=== PATIENT | male | born 1970 | race Caucasian/White ===

== ENCOUNTER 2017-03-25 20:09 | Emergency (ER) | payer OTHER ==
[2017-03-25] MEDS ORDERED: MORPHINE SULFATE 10 MG/ML INJ IV ONE ×2 (20:43→22:53)
[2017-03-25] MEDS ORDERED: ONDANSETRON HCL INJ/PF 4 MG/2 ML SDV IV ONE (20:43)
[2017-03-25] MEDS ORDERED: NORMAL SALINE 1000 ML 1,000 ML IV ONE (20:43)
--- NOTE | 2017-03-25 20:45 | ER Document Report ---
ED General - General Chief Complaint: Dizziness Stated Complaint: ABDOMINAL PAIN Time Seen by Provider: 03/25/17 20:23 Mode of Arrival: Ambulatory Information source: Patient Notes: Patient presents complaining of abdominal pain, dizziness and feeling faint. Patient states that he was recently diagnosed with stage IV stomach cancer 11 days ago. Patient states that he is waiting for the oncologist to get back in town so that he can follow-up. Patient states that his office is supposed to call him tomorrow with an appointment time. Patient states that he has had abdominal pain chronically for several months and that it is modestly worse tonight. Patient reports that he did have nausea with vomiting 1 episode that was light pink colored. Patient states that typically he will vomit about 1 time a week over the past several months. Patient states that he has had blood in his emesis about 1 time a week over the past few months. Patient denies any fever but does report having night sweats. Patient states that he has occasional shortness of breath but is not certain if this may be attributed to getting very emotional and anxious about his diagnosis. Pt denies any blood in the stool or dark colored stools. Patient states that his dizziness was causing his gait to be off balance at home which prompted his parents to get concerned and insisted he come to the hospital for further evaluation. TRAVEL OUTSIDE OF THE [place] IN LAST 30 DAYS: No - HPI Onset: Other - Several months, worse tonight Onset/Duration: Worse Quality of pain: Sharp Pain Level: 5 Associated symptoms: Nausea, Vomiting. denies: Chest pain, Nonproductive cough , Productive cough, Diarrhea, Fever Exacerbated by: Denies Relieved by: Denies Similar symptoms previously: Yes Recently seen / treated by doctor: Yes - 11 days ago diagnosed with stomach cancer - Related Data Allergies/Adverse Reactions: No Known Allergies Allergy (Unverified 03/25/17 21:30) Past Medical History - General Information source: Patient - Social History Smoking Status: Current Every Day Smoker Frequency of alcohol use: former Drug Abuse: None Occupation: none Lives with: Parents Family History: Reviewed & Not Pertinent Malignancy Medical History: Reports Other - stomach cancer Psychiatric Medical History: Reports: Hx Anxiety, Hx Depression Surgical Hx: Negative Review of Systems - Review of Systems Constitutional: Chills, Weight loss - 40 lb wt loss over 3 months EENT: No symptoms reported Cardiovascular: Dizziness, Lightheaded. denies: Chest pain, Palpitations Respiratory: Short of breath. denies: Cough Gastrointestinal: Abdominal pain, Nausea, Vomiting, Blood in vomit. denies: Diarrhea, Constipation, Blood streaked bowels Genitourinary: No symptoms reported. denies: Dysuria, Flank pain Male Genitourinary: No symptoms reported Musculoskeletal: No symptoms reported Skin: No symptoms reported Hematologic/Lymphatic: No symptoms reported Neurological/Psychological: No symptoms reported. denies: Lost consciousness Physical Exam - Vital signs Vitals: Temp Pulse Resp BP Pulse Ox 98.9 F 101 H 22 H 116/77 100 03/25/17 20:13 03/25/17 20:13 03/25/17 20:13 03/25/17 20:13 03/25/17 20:13 - General General appearance: Alert, Anxious In distress: None - HEENT Head: Normocephalic, Atraumatic Eyes: Normal Conjunctiva: Normal Nasal: Normal Mouth/Lips: Normal Mucous membranes: Normal Neck: Normal, Supple. No: Lymphadenopathy - Respiratory Respiratory status: No respiratory distress Chest status: Nontender Breath sounds: Normal. No: Rales, Rhonchi, Stridor, Wheezing Chest palpation: Normal - Cardiovascular Rhythm: Regular Heart sounds: S1 appreciated, S2 appreciated Murmur: No - Abdominal Inspection: Normal Distension: No distension Bowel sounds: Normal Tenderness: Tender - Left upper quadrant, right upper quadrant, left lower quadrant Organomegaly: No organomegaly - Back Back: Normal, Nontender. No: CVA tenderness - Extremities General upper extremity: Normal inspection, Normal ROM General lower extremity: Normal inspection, Normal ROM - Neurological Neuro grossly intact: Yes Cognition: Normal Anay Coma Scale Eye Opening: Spontaneous Anay Coma Scale Verbal: Oriented [place] Coma Scale Motor: Obeys Commands [place] Coma Scale Total: 15 - Psychological Associated symptoms: Anxious - Skin Skin Temperature: Warm Skin Moisture: Dry Skin Color: Normal Course - Re-evaluation Re-evalutation: 03/25/17 23:15 Patient reports that abdominal pain is improved although is not completely resolved. Patient feels that his symptoms are manageable. 03/25/17 23:[address] Sexton and discuss patient's diagnostic evaluation. Does not recommend any abdominal imaging as patient has had recent CT imaging of the abdomen. Agrees with plan to treat patient's nausea and abdominal pain as well as having patient follow up with oncology tomorrow as planned. - Vital Signs Vital signs: Temp Pulse Resp BP Pulse Ox 99.2 F 101 H 17 116/74 98 03/26/17 00:24 03/25/17 20:13 03/26/17 00:01 03/26/17 00:00 03/26/17 00:01 - Laboratory Result Diagrams: 03/25/17 21:20 03/25/17 21:20 Laboratory results interpreted by me: 03/25/17 03/25/17 03/25/17 21:20 21:20 21:20 WBC 14.3 H RBC 3.58 L Hgb 10.5 L Hct 31.2 L RDW 14.6 H Plt Count 462 H Seg Neutrophils % 82.8 H Lymphocytes % 9.7 L Absolute Neutrophils 11.9 H APTT 37.6 H Glucose 111 H Total Bilirubin 0.1 L AST 13 L ALT 20 L Total Protein 6.1 L Albumin 3.1 L Urine Urobilinogen 03/25/17 21:20 WBC RBC Hgb Hct RDW Plt Count Seg Neutrophils % Lymphocytes % Absolute Neutrophils APTT Glucose Total Bilirubin AST ALT Total Protein Albumin Urine Urobilinogen 2.0 H Labs- Entire Visit 03/25/17 03/25/17 03/25/17 21:20 21:20 21:20 WBC 14.3 H RBC 3.58 L Hgb 10.5 L Hct 31.2 L MCV 87 MCH 29.2 MCHC 33.5 RDW 14.6 H Plt Count 462 H Seg Neutrophils % 82.8 H Lymphocytes % 9.7 L Monocytes % 5.9 Eosinophils % 1.2 Basophils % 0.4 Absolute Neutrophils 11.9 H Absolute Lymphocytes 1.4 Absolute Monocytes 0.8 Absolute Eosinophils 0.2 Absolute Basophils 0.1 PT INR APTT Sodium 138.0 Potassium 3.8 Chloride 101 Carbon Dioxide 30 Anion Gap 7 BUN 12 Creatinine 0.83 Est GFR ( Amer) > 60 Est GFR (Non-Af Amer) > 60 Glucose 111 H Calcium 9.4 Total Bilirubin 0.1 L Direct Bilirubin 0.1 Neonat Total Bilirubin Not Reportable Neonat Direct Bilirubin Not Reportable Neonat Indirect Bili Not Reportable AST 13 L ALT 20 L Alkaline Phosphatase 70 Troponin I < 0.012 Total Protein 6.1 L Albumin 3.1 L Lipase 24.2 Urine Color Urine Appearance Urine pH Ur Specific [place] Urine Protein Urine Glucose (UA) Urine Ketones Urine Blood Urine Nitrite Urine Bilirubin Urine Urobilinogen Ur Leukocyte Esterase Urine WBC (Auto) Urine RBC (Auto) Squamous Epi Cells Auto Urine Mucus (Auto) Urine Ascorbic Acid 03/25/17 03/25/17 21:20 21:20 WBC RBC Hgb Hct MCV MCH MCHC RDW Plt Count Seg Neutrophils % Lymphocytes % Monocytes % Eosinophils % Basophils % Absolute Neutrophils Absolute Lymphocytes Absolute Monocytes Absolute Eosinophils Absolute Basophils PT 13.1 INR 0.92 APTT 37.6 H Sodium Potassium Chloride Carbon Dioxide Anion Gap BUN Creatinine Est GFR ( Amer) Est GFR (Non-Af Amer) Glucose Calcium Total Bilirubin Direct Bilirubin Neonat Total Bilirubin Neonat Direct Bilirubin Neonat Indirect Bili AST ALT Alkaline Phosphatase Troponin I Total Protein Albumin Lipase Urine Color YELLOW Urine Appearance SLIGHTLY-CLOUDY Urine pH 7.0 Ur Specific [place] 1.023 Urine Protein NEGATIVE Urine Glucose (UA) NEGATIVE Urine Ketones NEGATIVE Urine Blood NEGATIVE Urine Nitrite NEGATIVE Urine Bilirubin NEGATIVE Urine Urobilinogen 2.0 H Ur Leukocyte Esterase NEGATIVE Urine WBC (Auto) 0 Urine RBC (Auto) 1 Squamous Epi Cells Auto <1 Urine Mucus (Auto) OCC Urine Ascorbic Acid NEGATIVE - Diagnostic Test Radiology reviewed: Reports reviewed Discharge - Discharge Clinical Impression: History of stomach cancer, Nausea, Anxiety Abdominal pain Qualifiers: Abdominal location: unspecified location Qualified Code(s): R10.9 - Unspecified abdominal pain Condition: Stable Disposition: HOME, SELF-CARE Instructions: Abdominal Pain ([facility]), Anxiety ([facility]), Oral Narcotic Medication ( [facility]) Additional Instructions: Return immediately for any new or worsening symptoms Followup with your primary care provider, call tomorrow to make a followup appointment Follow-up with oncologist tomorrow for further evaluation. Prescriptions: Hydroxyzine Pamoate [Vistaril 50 mg Capsule] 50 mg PO TID PRN #20 capsule PRN Reason: Oxycodone HCl/Acetaminophen [Percocet 5-325 mg Tablet] 1 tab PO ASDIR PRN #20 tablet PRN Reason: Referrals: [facility] [Provider Group] - Follow up as needed WINSTON ORNELAS MD [ACTIVE STAFF] - Follow up tomorrow
[2017-03-25 21:38] LABS: APPEARANCE,URINE SLIGHTLY-CLOUDY; BILIRUBIN,URINE NEGATIVE (NEGATIVE); COLOR,URINE YELLOW; GLUCOSE, URINE NEGATIVE (NEGATIVE); KETONES,URINE NEGATIVE (NEGATIVE); LEUKOCYTE ESTERASE,URINE NEGATIVE (NEGATIVE); NITRITE,URINE NEGATIVE (NEGATIVE); PROTEIN,URINE NEGATIVE (NEGATIVE); URINE SPECIFIC GRAVITY 1.023
[2017-03-25 21:44] LABS: ABSOLUTE BASOPHILS # (AUTO) 0.1 10^3/uL (0.0-0.2); ABSOLUTE EOSINOPHILS # (AUTO) 0.2 10^3/uL (0.0-0.6); ABSOLUTE LYMPHOCYTES (AUTO) 1.4 10^3/uL (0.5-4.7); ABSOLUTE MONOCYTES (AUTO) 0.8 10^3/uL (0.1-1.4); ABSOLUTE NEUT (AUTO) 11.9 10^3/uL (1.7-8.2); BASOPHILS % (AUTO) 0.4 % (0-2); EOSINOPHILS % (AUTO) 1.2 % (0-6); HEMATOCRIT 31.2 % (37.9-51.0); HEMOGLOBIN 10.5 g/dL (13.5-17.0); LYMPHOCYTES % (AUTO) 9.7 % (13-45); MEAN CORPUSCULAR HEMOGLOBIN 29.2 pg (27.0-33.4); MEAN CORPUSCULAR HGB CONC 33.5 g/dL (32.0-36.0); MEAN CORPUSCULAR VOLUME 87 fl (80-97); MONOCYTES % (AUTO) 5.9 % (3-13); PLATELET COUNT 462 10^3/uL (150-450); RED BLOOD COUNT 3.58 10^6/uL (4.35-5.55); RED CELL DISTRIBUTION WIDTH 14.6 % (11.5-14.0); SEGMENTED NEUTROPHILS % (AUTO) 82.8 % (42-78); TOTAL CELLS COUNTED % (AUTO) 100 %; WHITE BLOOD COUNT 14.3 10^3/uL (4.0-10.5)
[2017-03-25 21:47] LABS: INTERNATIONAL RATION (INR) 0.92; PROTHROMBIN TIME 13.1 SEC (11.4-15.4)
[2017-03-25 21:48] LABS: PARTIAL THROMBOPLASTIN TIME 37.6 SEC (23.5-35.8)
[2017-03-25 21:57] LABS: ALANINE AMINOTRANSFERASE 20 U/L (21-72); ALBUMIN 3.1 g/dL (3.5-5.0); ALKALINE PHOSPHATASE 70 U/L (38-126); ANION GAP 7 (5-19); ASPARTATE AMINO TRANSFERASE 13 U/L (17-59); BILIRUBIN,DIRECT 0.1 mg/dL (0.0-0.4); BILIRUBIN,TOTAL 0.1 mg/dL (0.2-1.3); BLOOD UREA NITROGEN 12 mg/dL (7-20); CALCIUM 9.4 mg/dL (8.4-10.2); CARBON DIOXIDE 30 mmol/L (22-30); CHLORIDE 101 mmol/L (98-107); GLUCOSE 111 mg/dL (75-110); LIPASE 24.2 U/L (23-300); POTASSIUM 3.8 mmol/L (3.6-5.0); TOTAL PROTEIN 6.1 g/dL (6.3-8.2)
--- NOTE | 2017-03-25 22:33 | RADIOLOGY REPORT (SQ) ---
EXAM DESCRIPTION: ACUTE ABDOMEN SERIES COMPLETED DATE/TIME: 03/25/2017 10:08 pm REASON FOR STUDY: abd pain, dyspnea, stage IV stomach Ca COMPARISON: None. NUMBER OF VIEWS: Three views. TECHNIQUE: Frontal chest, supine abdomen and upright/decubitus abdomen radiographic images acquired. LIMITATIONS: None. FINDINGS: CHEST: Lungs clear of infiltrates. FREE AIR: None. No abnormal gas collections. BOWEL GAS PATTERN: Nonobstructive pattern. No dilated loops or air fluid levels. CONSTIPATION: Moderate CALCIFICATIONS: No suspicious calcifications. HARDWARE: None in the abdomen. SOFT TISSUES: No gross mass or suggestion of organomegaly. BONES: No acute fracture. No worrisome bone lesions. OTHER: No other significant finding. IMPRESSION: NO RADIOGRAPHIC EVIDENCE FOR ACUTE ABDOMINAL DISEASE. CONSTIPATION. TECHNICAL DOCUMENTATION: JOB ID: [id number] 2010 [employer]- All Rights Reserved
--- NOTE | 2017-03-25 23:28 | RADIOLOGY REPORT (SQ) ---
EXAM DESCRIPTION: CT HEAD WITHOUT COMPLETED DATE/TIME: 03/25/2017 11:12 pm REASON FOR STUDY: dizziness, hx stomach CA COMPARISON: None. TECHNIQUE: Axial images acquired through the brain without intravenous contrast. Images reviewed wi th bone, brain and subdural windows. Images stored on PACS. All CT scanners at this facility use dose modulation, iterative reconstruction, and/or weight based d osing when appropriate to reduce radiation dose to as low as reasonably achievable (ALARA). [facility]: Dose Right [facility]: CareDose [facility]: Dose Right [facility]: Teradose 4D [facility]: [employer] RADIATION DOSE: CT Rad equipment meets quality standard of care and radiation dose reduction techniq ues were employed. CTDIvol: 64.6 mGy. DLP: 1163 mGy-cm. mGy. LIMITATIONS: None. FINDINGS: VENTRICLES: Normal. CEREBRUM: No masses. No hemorrhage. No midline shift. Few scattered Areas of low density in the wh ite matter most likely due to chronic micro-vascular ischemic change. No evidence for acute infarcti on. CEREBELLUM: No masses. No hemorrhage. No alteration of density. No evidence for acute infarction. EXTRAAXIAL SPACES: Mild age-related involutional change. No fluid collections. No masses. ORBITS AND GLOBE: No intra- or extraconal masses. Normal contour of globe without masses. CALVARIUM: No fracture. PARANASAL SINUSES: No fluid or mucosal thickening. SOFT TISSUES: No mass or hematoma. OTHER: No other significant finding. IMPRESSION: Few scattered Areas of low density in the white matter most likely due to chronic micro- vascular ischemic change. EVIDENCE OF ACUTE STROKE: NO. TECHNICAL DOCUMENTATION: JOB ID: [id number] Quality ID # [id number]: Final reports with documentation of one or more dose reduction techniques (e.g., Au tomated exposure control, adjustment of the mA and/or kV according to patient size, use of iterative reconstruction technique) 2010 [employer]- All Rights Reserved
[2017-03-26 00:17] VITALS: BP 116/74
--- NOTE | 2017-03-27 07:57 | EKG REPORT ---
SEVERITY:- NORMAL ECG - SINUS RHYTHM : Confirmed by: Sameera Jaramillo MD 27-Mar-2017 07:55:53
== END 2017-03-26 00:24 | disposition home or self-care (01) ==
LOC: EDBD 20:09 → ER 20:09
DX: R42 Dizziness and giddiness (principal); R10.9 Unspecified abdominal pain; R11.2 Nausea with vomiting, unspecified; F41.9 Anxiety disorder, unspecified; F17.200 Nicotine dependence, unspecified, uncomplicated; Z85.028 Personal history of other malignant neoplasm of stomach
CPT/HCPCS: 93005; 96376; 99285; 96374; 96375; 36415; 83690; 85025; 85610; 85730; 80053; 81001; 84484; 74022; 70450; 93010; J2270; J2405; J7030

== ENCOUNTER → 2017-03-30 | Outpatient (CLI) | payer OTHER ==
--- NOTE | 2017-04-01 11:01 | RADIOLOGY REPORT (SQ) ---
EXAM DESCRIPTION: PET CT SKULL/THIGH COMPLETED DATE/TIME: 03/30/2017 8:35 pm REASON FOR STUDY: GASTRIC CANCER C16.0 MALIGNANT NEOPLASM OF CARDIA COMPARISON: None. RADIONUCLIDE AND DOSE: 10.0 mCi F18 FDG The route of agent administration: Intravenous FASTING BLOOD SUGAR: 108 mg/dl CONTRAST TYPE AND DOSE: No CT contrast given. TECHNIQUE: Blood glucose level was verified. Above dose of FDG was injected intravenously. 2-D seg mented attenuation correction images were obtained from the base of the skull to the midthighs. Nonc ontrast CT images were obtained for attenuation correction and fusion with emission images. CT image s were performed without oral or intravenous contrast and are not sensitive for parenchymal lesions. A series of overlapping emission PET images were obtained. [facility] by the radiologist. Images stored on PACS. LIMITATIONS: None. FINDINGS: HEAD AND NECK: No areas of abnormal metabolic activity in the soft tissues of the head and neck. CHEST: No areas of abnormal metabolic activity in the chest. Findings involving the distal esophagus are discussed in the abdominal section. ABDOMEN AND PELVIS: Extensive heterogenous soft tissue mass extending from the distal esophagus throu gh the gastroesophageal junction and into the proximal stomach. Markedly increased metabolic activit y. SUV values range from 9.39 to 14.7. Tiny lymph node on the right side of the esophagus just abov e the area of involvement (series 3, image 111), measuring 6 mm, with mean SUV value 2.28. Retroperi toneal lymph node on the right side of the celiac artery, measuring 9 mm (series 3, image 143). Mean SUV value 3.83. Lymph node on the left side of the superior mesenteric artery measuring 1.5 cm (ser ies 3, image 147). Mean SUV value 2.65. Expected physiologic activity is present in the genitourinar y system and bowel. PROXIMAL LOWER EXTREMITIES: No areas of abnormal metabolic activity in the soft tissues of the lower extremities. BONES: No abnormal metabolic activity in the visualized skeleton. ADDITIONAL CT FINDINGS: Incidental cyst in the left lobe of the liver, measuring 1.5 cm. No addition al significant findings on the noncontrast CT images. OTHER: No other significant findings. IMPRESSION: 1. EXTENSIVE LARGE MASS AT THE GASTROESOPHAGEAL JUNCTION EXTENDING INTO THE PROXIMAL STOMACH SECONDAR Y TO KNOWN MALIGNANCY. THERE IS EVIDENCE OF METASTATIC ADENOPATHY WITH A SMALL LYMPH NODE ON THE RIG HT SIDE OF THE DISTAL ESOPHAGUS WELL TWO LYMPH NODES IDENTIFIED IN THE UPPER RETROPERITONEUM. 2. NO OTHER AREAS OF ABNORMAL METABOLIC ACTIVITY. TECHNICAL DOCUMENTATION: JOB ID: [id number] [employer]- All Rights Reserved
== END ==
LOC: RAD 17:46
PROVIDERS: ATTEND Internal Medicine
DX: C16.0 Malignant neoplasm of cardia (principal)
CPT/HCPCS: 78815; A9552

== ENCOUNTER 2017-04-30 09:48 | Outpatient (CLI) | payer OTHER ==
[~2017-04-30 09:48] MED LIST: ACETAMINOPHEN 325 MG TABLET PO PRN; DIPHENHYDRAMINE HCL 25 MG CAPSULE PO PRN; FUROSEMIDE INJ/PF 20 MG/2 ML SDV IV PRN
[2017-04-30 10:26] LABS: MEAN CORPUSCULAR HEMOGLOBIN 26.8 pg (27.0-33.4); MEAN CORPUSCULAR HGB CONC 31.7 g/dL (32.0-36.0); MEAN CORPUSCULAR VOLUME 85 fl (80-97); PLATELET COUNT 832 10^3/uL (150-450); RED BLOOD COUNT 1.67 10^6/uL (4.35-5.55)
[2017-04-30 10:53] LABS: HEMOGLOBIN 4.5 g/dL (13.5-17.0)
[2017-04-30 11:01] LABS: HEMATOCRIT 14.1 % (37.9-51.0)
[2017-04-30] MEDS ORDERED: MORPHINE SULFATE 10 MG/ML INJ IV ONE (15:00)
[2017-04-30 17:43] VITALS: BP 100/61
[2017-05-01 12:53] LABS: PATH REVIEW PATHOLOGIST REVIEWED
== END 2017-04-30 17:45 | disposition home or self-care (01) ==
LOC: II 09:48 → 2S 10:00 → II 17:45
PROVIDERS: ATTEND Internal Medicine
PROC: 30233N1 Transfusion of Nonautologous Red Blood Cells into Peripheral Vein, Percutaneous Approach (ICD-10-PCS; principal; 2017-04-30)
PROC: 3E033GC Introduction of Other Therapeutic Substance into Peripheral Vein, Percutaneous Approach (ICD-10-PCS; 2017-04-30)
DX: D64.9 Anemia, unspecified (principal)
CPT/HCPCS: 86900; 86901; 36415; 36430; 86850; 86920; P9016; J1940; J2270; 96374; 96375

== ENCOUNTER 2017-05-01 15:36 | Outpatient (CLI) | payer OTHER ==
[2017-05-01] MEDS ORDERED: LORAZEPAM 0.5 MG TABLET PO PRN (16:36)
[2017-05-01] MEDS: MORPHINE SULFATE 10 MG/5 ML ORAL SOLUTION UDCUP PO PRN (16:54)
[2017-05-01 17:20] LABS: HEMATOCRIT 18.6 % (37.9-51.0); MEAN CORPUSCULAR HEMOGLOBIN 27.6 pg (27.0-33.4); MEAN CORPUSCULAR HGB CONC 33.3 g/dL (32.0-36.0); MEAN CORPUSCULAR VOLUME 83 fl (80-97); PLATELET COUNT 608 10^3/uL (150-450); RED BLOOD COUNT 2.24 10^6/uL (4.35-5.55); RED CELL DISTRIBUTION WIDTH 15.6 % (11.5-14.0); WHITE BLOOD COUNT 26.9 10^3/uL (4.0-10.5)
[2017-05-01 18:03] LABS: HEMOGLOBIN 6.2 g/dL (13.5-17.0)
[2017-05-01] MEDS: ACETAMINOPHEN 325 MG TABLET PO SCH (18:18)
[2017-05-01] MEDS: DIPHENHYDRAMINE HCL 25 MG CAPSULE PO SCH (18:18)
[2017-05-01] MEDS: ONDANSETRON 4 MG TAB.RAPDIS PO PRN (19:20)
[2017-05-01] MEDS: FUROSEMIDE INJ/PF 20 MG/2 ML SDV IV SCH (22:12)
[2017-05-02 00:13] VITALS: BP 119/77
== END 2017-05-02 01:32 | disposition home or self-care (01) ==
LOC: II 15:36 → 3W 15:48 → II 05-02 01:32
PROVIDERS: ATTEND Internal Medicine
PROC: 30243N1 Transfusion of Nonautologous Red Blood Cells into Central Vein, Percutaneous Approach (ICD-10-PCS; principal; 2017-05-01)
DX: C16.0 Malignant neoplasm of cardia (principal); D63.0 Anemia in neoplastic disease; G89.3 Neoplasm related pain (acute) (chronic); Z93.1 Gastrostomy status
CPT/HCPCS: 86900; 86901; 36415; 36430; 86850; 86920; P9016; S0119; J1940

== ENCOUNTER 2017-05-05 22:06 | Emergency (ER) | payer OTHER ==
[2017-05-05] MEDS ORDERED: NORMAL SALINE 1000 ML 1,000 ML IV ONE (22:49)
--- NOTE | 2017-05-05 22:50 | ER Document Report ---
ED General - General Chief Complaint: Fever Stated Complaint: VOMITING FEVER Time Seen by Provider: 05/05/17 22:48 Information source: Patient, Parent TRAVEL OUTSIDE OF THE [place] IN LAST 30 DAYS: No - HPI Patient complains to provider of: fever Onset: This afternoon Onset/Duration: Sudden Quality of pain: Achy Associated symptoms: Nausea, Vomiting Exacerbated by: Denies Relieved by: Denies Similar symptoms previously: Yes Recently seen / treated by doctor: Yes - chemo 4 days ago Notes: 46-year-old male who was diagnosed with gastric cancer mid February. Patient had his first round of chemotherapy 4 days ago. He presents today with fever of 102 orally as per his mom's report. She has also been having nausea and vomiting throughout the day. He does have a PEG tube and his parents did turn off the feedings. - Related Data Allergies/Adverse Reactions: No Known Allergies Allergy (Unverified 03/25/17 21:30) Past Medical History - General Information source: Patient, Relative - Social History Smoking Status: Former Smoker Smoking Education Provided: No Frequency of alcohol use: None Drug Abuse: None Lives with: Parents Family History: Reviewed & Not Pertinent Patient has suicidal ideation: No Patient has homicidal ideation: No - Past Medical History Cardiac Medical History: Denies: Hx Atrial Fibrillation, Hx Congestive Heart Failure, Hx Heart Attack , Hx Hypercholesterolemia, Hx Hypertension Pulmonary Medical History: Denies: Hx Asthma, Hx Bronchitis, Hx COPD, Hx Pneumonia, Hx Tuberculosis Neurological Medical History: Denies: Hx Migraine, Hx Seizures Endocrine Medical History: Denies: Hx Diabetes Mellitus Type 1, Hx Diabetes Mellitus Type 2 Renal/ Medical History: Denies: Hx End Stage Renal Disease, Hx Kidney Stones, Hx Peritoneal Dialysis Malignancy Medical History: Reports Other - Gastric cancer GI Medical History: Denies: Hx Gastroesophageal Reflux Disease, Hx Hiatal Hernia , Hx Ulcer Musculoskeltal Medical History: Denies Hx Arthritis Psychiatric Medical History: Reports: Hx Anxiety, Hx Depression Denies: Hx Attention Deficit Hyperactivity Disorder, Hx Bipolar Disorder, Hx Schizophrenia Traumatic Medical History: Reports: None Past Surgical History: Reports: Other - Port-A-Cath, G-tube, abdominal biopsy. Denies: Hx Abdominal Surgery, Hx Appendectomy, Hx Bowel Surgery, Hx Cardiac Catheterization, Hx Cardiac Surgery, Hx Cholecystectomy, Hx Genitourinary Surgery, Hx Kidney (Renal Surgery), Hx Neurologic Surgery, Hx Nose Surgery, Hx Open Heart Surgery, Hx Oral Surgery, Hx Orthopedic Surgery, Hx Pancreatic Surgery, Hx Pituitary Surgery, Hx Rectal Surgery, Hx Testicular Surgery, Hx Thyroid Surgery, Hx Tonsillectomy, Hx Urinary Tract Surgery, Hx Vascular Surgery - Immunizations Hx Diphtheria, Pertussis, Tetanus Vaccination: Yes Review of Systems - Review of Systems Constitutional: Chills, Fever, Weakness, Weight loss EENT: No symptoms reported Cardiovascular: No symptoms reported Respiratory: No symptoms reported Gastrointestinal: Nausea, Vomiting, Poor appetite, Poor fluid intake. denies: Abdomen distended, Diarrhea Genitourinary: No symptoms reported Male Genitourinary: No symptoms reported Musculoskeletal: No symptoms reported Skin: No symptoms reported Hematologic/Lymphatic: Anemia Neurological/Psychological: Depression Physical Exam - Vital signs Vitals: Temp Pulse Resp BP Pulse Ox 99.9 F 115 H 17 93/59 L 97 05/05/17 22:49 05/05/17 22:49 05/05/17 22:49 05/05/17 22:49 05/05/17 22:49 - Notes Notes: PHYSICAL EXAMINATION: GENERAL: Cachectic, ill-appearing male, mild distress HEAD: Atraumatic, normocephalic. EYES: Pupils equal round and reactive to light, extraocular movements intact, sclera anicteric, conjunctiva are normal. ENT: Nares patent, oropharynx clear without exudates. Dry mucous membranes. NECK: Normal range of motion, supple without lymphadenopathy LUNGS: Breath sounds clear to auscultation bilaterally and equal. No wheezes rales or rhonchi. HEART: Regular rate and rhythm without murmurs ABDOMEN: Soft, nontender, nondistended abdomen. PEG tube without signs or symptoms of infection. no guarding, no rebound. Musculoskeletal: Normal range of motion, no pitting or edema. No cyanosis. NEUROLOGICAL: Cranial nerves grossly intact. Normal speech. Normal sensory, motor exams PSYCH: Normal mood, normal affect. SKIN: Warm, Dry, normal turgor, no rashes or lesions noted. Course - Re-evaluation Re-evalutation: 05/06/17 01:06 Chest X-Ray 05/05/17 22:48 IMPRESSION: No acute findings. - Vital Signs Vital signs: Temp Pulse Resp BP Pulse Ox 99.9 F 115 H 21 H 96/64 L 100 05/05/17 22:49 05/05/17 22:49 05/05/17 23:29 05/05/17 23:28 05/05/17 23:29 - Laboratory Result Diagrams: 05/05/17 23:20 05/05/17 23:20 Laboratory results interpreted by me: 05/05/17 05/05/17 05/06/17 23:20 23:20 00:30 WBC 18.1 H RBC 2.37 L Hgb 6.8 L Hct 20.2 L RDW 15.3 H Plt Count 572 H Seg Neuts % (Manual) 85 H Band Neutrophils % 2 L Lymphocytes % (Manual) 8 L Abs Neuts (Manual) 15.7 H Sodium 129.7 L Chloride 94 L Glucose 121 H AST 13 L ALT 18 L Total Protein 5.0 L Albumin 2.5 L Urine Urobilinogen 4.0 H Urine Ascorbic Acid 40 H Discharge - Discharge Clinical Impression: Fever, Anemia, Blood transfusion during current hospitalisation, Gastric cancer Condition: Poor Disposition: HOME, SELF-CARE Additional Instructions: Follow up with your physician tomorrow for further care or return to the ED IMMEDIATELY if symptoms worsen or new concerns occur. If you cannot afford to follow up with your primary care physician a list of low cost clinics have been provided at the end of your discharge papers as well. Referrals: WINSTON ORNELAS MD [Primary Care Provider] - Follow up in 3-5 days
--- NOTE | 2017-05-05 23:13 | RADIOLOGY REPORT (SQ) ---
EXAM DESCRIPTION: CHEST PA/LAT COMPLETED DATE/TIME: 05/05/2017 11:02 pm REASON FOR STUDY: fever COMPARISON: 03/25/2017 EXAM PARAMETERS: NUMBER OF VIEWS: two views TECHNIQUE: Digital Frontal and Lateral radiographic views of the chest acquired. RADIATION DOSE: NA LIMITATIONS: none FINDINGS: LUNGS AND PLEURA: No opacities, masses or pneumothorax. No pleural effusion. MEDIASTINUM AND HILAR STRUCTURES: No masses or contour abnormalities. HEART AND VASCULAR STRUCTURES: Heart normal size. No evidence for failure. BONES: No acute findings. HARDWARE: Left chest port. OTHER: No other significant finding. IMPRESSION: No acute findings. TECHNICAL DOCUMENTATION: JOB ID: [id number] 2010 [employer]- All Rights Reserved
[2017-05-05 23:53] LABS: HEMATOCRIT 20.2 % (37.9-51.0); MEAN CORPUSCULAR HEMOGLOBIN 28.8 pg (27.0-33.4); MEAN CORPUSCULAR HGB CONC 33.9 g/dL (32.0-36.0); MEAN CORPUSCULAR VOLUME 85 fl (80-97); PLATELET COUNT 572 10^3/uL (150-450); RED BLOOD COUNT 2.37 10^6/uL (4.35-5.55); RED CELL DISTRIBUTION WIDTH 15.3 % (11.5-14.0); WHITE BLOOD COUNT 18.1 10^3/uL (4.0-10.5)
[2017-05-05 23:55] LABS: HEMOGLOBIN 6.8 g/dL (13.5-17.0)
[2017-05-06 00:03] LABS: ALANINE AMINOTRANSFERASE 18 U/L (21-72); ALBUMIN 2.5 g/dL (3.5-5.0); ALKALINE PHOSPHATASE 80 U/L (38-126); ANION GAP 6 (5-19); ASPARTATE AMINO TRANSFERASE 13 U/L (17-59); BILIRUBIN,TOTAL 0.2 mg/dL (0.2-1.3); BLOOD UREA NITROGEN 16 mg/dL (7-20); CALCIUM 8.7 mg/dL (8.4-10.2); CARBON DIOXIDE 30 mmol/L (22-30); CHLORIDE 94 mmol/L (98-107); GLUCOSE 121 mg/dL (75-110); MAGNESIUM 1.9 mg/dL (1.6-2.3); POTASSIUM 4.4 mmol/L (3.6-5.0); SODIUM 129.7 mmol/L (137-145)
[2017-05-06 00:20] LABS: ABSOLUTE LYMPHOCYTES# (MANUAL) 1.4 10^3/uL (0.5-4.7); ABSOLUTE MONOCYTES # (MANUAL) 0.7 10^3/uL (0.1-1.4); ABSOLUTE NEUTROPHILS# (MANUAL) 15.7 10^3/uL (1.7-8.2); BAND NEUTROPHILS % (MANUAL) 2 % (3-5); BASOPHILS % (MANUAL) 0 % (0-2); EOSINOPHILS % (MANUAL) 1 % (0-6); LYMPHOCYTES % (MANUAL) 8 % (13-45); MONOCYTES % (MANUAL) 4 % (3-13); SEGMENTED NEUTROPHILS % (MAN) 85 % (42-78); TOTAL CELLS COUNTED 100
[2017-05-06 00:25] LABS: HYPERSEGMENTED NEUTROPHILS PRESENT
[2017-05-06 00:26] LABS: ANISOCYTOSIS 3+; HYPOCHROMASIA 3+; PLATELET COMMENT INCREASED; POIKILOCYTOSIS SLIGHT; POLYCHROMASIA SLIGHT; STOMATOCYTES SLIGHT
[2017-05-06 00:27] LABS: PLATELET CLUMPS PRESENT
[2017-05-06] MEDS ORDERED: ONDANSETRON HCL INJ/PF 4 MG/2 ML SDV IV ONE (00:46)
[2017-05-06 00:50] LABS: APPEARANCE,URINE SLIGHTLY-CLOUDY; BILIRUBIN,URINE NEGATIVE (NEGATIVE); COLOR,URINE YELLOW; GLUCOSE, URINE NEGATIVE (NEGATIVE); KETONES,URINE NEGATIVE (NEGATIVE); LEUKOCYTE ESTERASE,URINE NEGATIVE (NEGATIVE); NITRITE,URINE NEGATIVE (NEGATIVE); PROTEIN,URINE NEGATIVE (NEGATIVE); URINE SPECIFIC GRAVITY 1.021
[2017-05-06] MEDS ORDERED: CEFTRIAXONE INJ 1000 MG VIAL IV ONE (00:58)
[2017-05-06] MEDS ORDERED: NORMAL SALINE 250 ML IV PRN ×2 (01:02)
[2017-05-06] MEDS ORDERED: OXYCODONE HCL IR 5 MG TABLET PO ONE (03:05)
[2017-05-06 05:11] VITALS: BP 105/53
== END 2017-05-06 05:11 | disposition home or self-care (01) ==
LOC: ER 22:06
DX: C16.9 Malignant neoplasm of stomach, unspecified (principal); R50.9 Fever, unspecified; D63.8 Anemia in other chronic diseases classified elsewhere; R11.2 Nausea with vomiting, unspecified; R53.1 Weakness; Z93.1 Gastrostomy status; Z87.891 Personal history of nicotine dependence
CPT/HCPCS: 99284; 96361; 96375; 96365; 86900; 86901; 36415; 87040; 36430; 86850; 83735; 85025; 80053; 81001; 86920; 83605; 71046; P9016; J0696; J2405; J7030

== ENCOUNTER 2017-05-13 05:54 | Emergency (ER) | payer OTHER ==
[2017-05-13] MEDS ORDERED: NORMAL SALINE 1000 ML 1,000 ML IV ONE ×2 (06:02→06:30)
[2017-05-13 06:18] LABS: VENOUS BLOOD BASE EXCESS -2.6 mmol/L; VENOUS BLOOD HCO3 20.8 mmol/L (20-32); VENOUS BLOOD PCO2 31.8 mmHg (35-63); VENOUS BLOOD PH 7.43 (7.30-7.42)
[2017-05-13 06:22] LABS: INTERNATIONAL RATION (INR) 1.21; PROTHROMBIN TIME 16.1 SEC (11.4-15.4)
[2017-05-13 06:30] LABS: ALANINE AMINOTRANSFERASE 31 U/L (21-72); ALBUMIN 2.2 g/dL (3.5-5.0); ALKALINE PHOSPHATASE 94 U/L (38-126); ANION GAP 11 (5-19); ASPARTATE AMINO TRANSFERASE 36 U/L (17-59); BILIRUBIN,DIRECT 0.2 mg/dL (0.0-0.4); BILIRUBIN,TOTAL 0.3 mg/dL (0.2-1.3); BLOOD UREA NITROGEN 16 mg/dL (7-20); CALCIUM 8.3 mg/dL (8.4-10.2); CARBON DIOXIDE 22 mmol/L (22-30); CHLORIDE 99 mmol/L (98-107); GLUCOSE 98 mg/dL (75-110); POTASSIUM 4.3 mmol/L (3.6-5.0); SODIUM 132.4 mmol/L (137-145); TOTAL PROTEIN 4.7 g/dL (6.3-8.2)
[2017-05-13 06:43] LABS: HEMATOCRIT 18.7 % (37.9-51.0); MEAN CORPUSCULAR HEMOGLOBIN 27.8 pg (27.0-33.4); MEAN CORPUSCULAR HGB CONC 32.6 g/dL (32.0-36.0); MEAN CORPUSCULAR VOLUME 86 fl (80-97); PLATELET COUNT 523 10^3/uL (150-450); RED BLOOD COUNT 2.18 10^6/uL (4.35-5.55); RED CELL DISTRIBUTION WIDTH 15.6 % (11.5-14.0); WHITE BLOOD COUNT 4.5 10^3/uL (4.0-10.5)
[2017-05-13] MEDS ORDERED: PIPERACILLIN/TAZOBACTAM 4.5 GM VIAL IV ONE (06:44)
[2017-05-13 06:45] LABS: MAGNESIUM 1.8 mg/dL (1.6-2.3)
--- NOTE | 2017-05-13 07:14 | RADIOLOGY REPORT (SQ) ---
EXAM DESCRIPTION: CHEST SINGLE VIEW CLINICAL HISTORY: 46 years, Male, FEVER COMPARISON: May 05, 2017. NUMBER OF VIEWS: 1 TECHNIQUE: AP portable upright LIMITATIONS: None. FINDINGS: Moderate lung volume, small atelectasis or scar of the left midlung field, azygos lobe variant, left subclavian miniport central line tip at the SVC, normal cardiac silhouette, left-sided likely skinfold artifact, and moderate osteoarthritis. IMPRESSION: Small left sided atelectasis-scar.
[2017-05-13 07:23] LABS: ABSOLUTE LYMPHOCYTES# (MANUAL) 0.1 10^3/uL (0.5-4.7); ABSOLUTE NEUTROPHILS# (MANUAL) 4.4 10^3/uL (1.7-8.2); BAND NEUTROPHILS % (MANUAL) 10 % (3-5); BASOPHILS % (MANUAL) 0 % (0-2); EOSINOPHILS % (MANUAL) 1 % (0-6); LYMPHOCYTES % (MANUAL) 2 % (13-45); METAMYELOCYTES % (MANUAL) 1 % (0); MONOCYTES % (MANUAL) 0 % (3-13); SEGMENTED NEUTROPHILS % (MAN) 86 % (42-78); TOTAL CELLS COUNTED 100
[2017-05-13 07:24] LABS: ANISOCYTOSIS SLIGHT; POLYCHROMASIA SLIGHT; TOXIC VACUOLATION PRESENT
[2017-05-13 07:25] LABS: HEMOGLOBIN 6.1 g/dL (13.5-17.0); OVALOCYTES 1+; PLATELET COMMENT INCREASED; POIKILOCYTOSIS 1+; ROULEAUX 1+
--- NOTE | 2017-05-13 07:28 | ER Document Report ---
ED General - General Chief Complaint: Fall Stated Complaint: NAUSEA/VOMITING Time Seen by Provider: 05/13/17 06:13 TRAVEL OUTSIDE OF THE [place] IN LAST 30 DAYS: No - HPI Patient complains to provider of: Nausea vomiting dizziness fall Notes: Patient has a history of gastric cancer currently started chemotherapy last emesis was approximately 1 week ago newly diagnosed cancer in February coming in for dizziness and a fall also patient was found to have a fever of 102. Patient currently is on some antibiotics unknown name for possible PEG tube infection was supposed to follow-up at [facility] this morning for a J-tube placement. Patient does currently have G-tube in place. States having nausea and vomiting despite having the G-tube. Patient states he is vomiting some of the seeds up. Patient states he has been taking Phenergan. Denies any cough patient states has not had a bowel movement in "quite some time. Passing gas no diarrhea. Patient upon my evaluation tachycardic hypotensive looks uncomfortable during examination of start of moaning screaming pain. - Related Data Allergies/Adverse Reactions: No Known Allergies Allergy (Unverified 03/25/17 21:30) Past Medical History - Social History Smoking Status: Former Smoker Chew tobacco use (# tins/day): No Frequency of alcohol use: Rare Drug Abuse: None Family History: Reviewed & Not Pertinent Patient has suicidal ideation: No Patient has homicidal ideation: No - Past Medical History Cardiac Medical History: Denies: Hx Atrial Fibrillation, Hx Congestive Heart Failure, Hx Heart Attack , Hx Hypercholesterolemia, Hx Hypertension Pulmonary Medical History: Denies: Hx Asthma, Hx Bronchitis, Hx COPD, Hx Pneumonia, Hx Tuberculosis Neurological Medical History: Denies: Hx Migraine, Hx Seizures Endocrine Medical History: Denies: Hx Diabetes Mellitus Type 1, Hx Diabetes Mellitus Type 2 Renal/ Medical History: Denies: Hx End Stage Renal Disease, Hx Kidney Stones, Hx Peritoneal Dialysis GI Medical History: Denies: Hx Gastroesophageal Reflux Disease, Hx Hiatal Hernia , Hx Ulcer Musculoskeltal Medical History: Denies Hx Arthritis Psychiatric Medical History: Reports: Hx Anxiety, Hx Depression Denies: Hx Attention Deficit Hyperactivity Disorder, Hx Bipolar Disorder, Hx Schizophrenia Past Surgical History: Reports: Other - Port-A-Cath, G-tube, abdominal biopsy. Denies: Hx Abdominal Surgery, Hx Appendectomy, Hx Bowel Surgery, Hx Cardiac Catheterization, Hx Cardiac Surgery, Hx Cholecystectomy, Hx Genitourinary Surgery, Hx Kidney (Renal Surgery), Hx Neurologic Surgery, Hx Nose Surgery, Hx Open Heart Surgery, Hx Oral Surgery, Hx Orthopedic Surgery, Hx Pancreatic Surgery, Hx Pituitary Surgery, Hx Rectal Surgery, Hx Testicular Surgery, Hx Thyroid Surgery, Hx Tonsillectomy, Hx Urinary Tract Surgery, Hx Vascular Surgery - Immunizations Hx Diphtheria, Pertussis, Tetanus Vaccination: Yes Review of Systems - Review of Systems Constitutional: Fever EENT: No symptoms reported Cardiovascular: No symptoms reported Respiratory: No symptoms reported Gastrointestinal: Abdominal pain, Nausea, Vomiting Genitourinary: No symptoms reported Male Genitourinary: No symptoms reported Musculoskeletal: No symptoms reported Skin: No symptoms reported Hematologic/Lymphatic: No symptoms reported Neurological/Psychological: No symptoms reported, Sensory change Physical Exam - Vital signs Vitals: Resp Pulse Ox 26 H 98 05/13/17 05:57 05/13/17 05:57 Interpretation: Hypotensive, Tachycardic, Febrile - General General appearance: Other - Patient looks chronically ill with being uncomfortable to as well In distress: Mild - HEENT Head: Normocephalic, Atraumatic Eyes: Normal Pupils: PERRL - Respiratory Respiratory status: No respiratory distress Chest status: Nontender Breath sounds: Normal Chest palpation: Normal Notes: port to the left upper chest no signs of infection - Cardiovascular Rhythm: Regular, Tachycardia Heart sounds: Normal auscultation Murmur: No - Abdominal Inspection: Normal Distension: Distended, Other - Abdomen hard Bowel sounds: Hypoactive Tenderness: Other - Patient with diffuse tenderness to palpation. Patient has hypoactive bowel sounds the abdomen is slightly distended at the upper portion patient moans every time I touch his abdomen. G-tube is in tact there is redness around the entrance site you can see the balloon through the entrance site. There is purulent material coming around the site to as well Organomegaly: No organomegaly - Back Back: Normal, Nontender - Extremities General upper extremity: Normal inspection, Nontender, Normal color, Normal ROM , Normal temperature General lower extremity: Normal inspection, Nontender, Normal color, Normal ROM , Normal temperature, Normal weight bearing. No: Ann's sign - Neurological Neuro grossly intact: Yes Cognition: Normal Orientation: AAOx4 [place] Coma Scale Eye Opening: Spontaneous Anay Coma Scale Verbal: Oriented [place] Coma Scale Motor: Obeys Commands Anay Coma Scale Total: 15 Speech: Normal Motor strength normal: LUE, RUE, LLE, RLE Sensory: Normal - Psychological Associated symptoms: Normal affect, Normal mood - Skin Skin Temperature: Warm Skin Moisture: Dry Skin Color: Pale Course - Re-evaluation Re-evalutation: 05/13/17 07:26 Patient looking uncomfortable due to his abdominal examination fever and concerned that there is a possibility that is feeding tube may have came dislodged and patient may receive feeds within the abdominal cavity. Also concerned that the patient does have what looks like to be infected feeding tube site. Patient does states passing gas however abdomen is hypoactive and hard to touch. Patient states no bowel movement also concern for significant constipation and possible perforation. Patient was initially started on Zosyn due to these concerns and IV fluid boluses. Did explain to the patient initially that we will have to hold off on any pain medication is that his blood pressure is low at this time. Overall concern for sepsis will continue workup to identify source 05/13/17 07:36 Review of the CAT scan of the abdomen does show a significant amount of stool retention throughout the colon and unable to determine if there is any signs of any free air however the chest x-ray does not show anything underneath the diaphragms. Like Pradaxa did come back significantly elevated. Patient's blood pressure after IV fluids continues to be marginal will start patient on Levophed through his port at this time. 05/13/17 07:50 Feeding tube is not in the correct orientation therefore patient does have most likely a small perforation. Significant constipation not large amount of free fluid family states that he stopped tube feeds earlier this morning. Patient continues to have tachycardia and hypotension. 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 05/13/17 09:21 Surgeon currently at bedside evaluating the patient. Blood pressure and heart rate have improved with Levophed. 05/13/17 11:29 Patient's blood pressure did improve because the patient's pain did agree to give the patient a small amount of fentanyl. Patient also is currently getting his blood transfusion. Surgeon at bedside did discuss patient's presentation with Dr. Petersen who agreed to accept the patient in transfer. I did contact the transfer team and through transfer team we did update them further informed that the patient was on levo fed due to possible underlying sepsis with tachycardia hypotension receiving blood transfusion. Currently the plan is to fly the patient to [facility] because he is in a critical state. - Vital Signs Vital signs: Temp Pulse Resp BP Pulse Ox 99.0 F 118 H 20 85/55 L 100 05/13/17 11:47 05/13/17 11:47 05/13/17 11:47 05/13/17 11:47 05/13/17 11:47 - Laboratory Result Diagrams: 05/13/17 06:00 05/13/17 06:00 Laboratory results interpreted by me: 05/13/17 05/13/17 05/13/17 06:00 06:00 06:00 RBC 2.18 L Hgb 6.1 L Hct 18.7 L RDW 15.6 H Plt Count 523 H Seg Neuts % (Manual) 86 H Band Neutrophils % 10 H Lymphocytes % (Manual) 2 L Monocytes % (Manual) 0 L Metamyelocytes % 1 H Abs Lymphs (Manual) 0.1 L Abs Monocytes (Manual) 0.0 L PT 16.1 H VBG pH VBG pCO2 Sodium 132.4 L POC Glucose Lactic Acid Calcium 8.3 L Total Protein 4.7 L Albumin 2.2 L Lipase Crossmatch 05/13/17 05/13/17 05/13/17 06:00 06:00 06:00 RBC Hgb Hct RDW Plt Count Seg Neuts % (Manual) Band Neutrophils % Lymphocytes % (Manual) Monocytes % (Manual) Metamyelocytes % Abs Lymphs (Manual) Abs Monocytes (Manual) PT VBG pH 7.43 H VBG pCO2 31.8 L Sodium POC Glucose Lactic Acid 7.6 H Calcium Total Protein Albumin Lipase 19.0 L Crossmatch 05/13/17 05/13/17 05/13/17 06:04 08:35 11:25 RBC Hgb Hct RDW Plt Count Seg Neuts % (Manual) Band Neutrophils % Lymphocytes % (Manual) Monocytes % (Manual) Metamyelocytes % Abs Lymphs (Manual) Abs Monocytes (Manual) PT VBG pH VBG pCO2 Sodium POC Glucose 115 H Lactic Acid 7.0 H Calcium Total Protein Albumin Lipase Crossmatch See Detail Critical Care Note - Critical Care Note Total time excluding time spent on procedures (mins): 90 Comments: Time spent for evaluation of patient concern for sepsis time spent discussing with consultants and transferring facility Discharge - Discharge Clinical Impression: Ileus, Malfunction of gastrostomy tube Fever Qualifiers: Fever type: unspecified Qualified Code(s): R50.9 - Fever, unspecified Anemia Qualifiers: Anemia type: unspecified type Qualified Code(s): D64.9 - Anemia, unspecified Gastric cancer Qualifiers: Malignant neoplasm of stomach location: unspecified location Qualified Code(s) : C16.9 - Malignant neoplasm of stomach, unspecified Sepsis Qualifiers: Sepsis type: sepsis due to unspecified organism Qualified Code(s): A41.9 - Sepsis, unspecified organism Abdominal pain Qualifiers: Abdominal location: unspecified location Qualified Code(s): R10.9 - Unspecified abdominal pain Constipation Qualifiers: Constipation type: unspecified constipation type Qualified Code(s): K59.00 - Constipation, unspecified Nausea & vomiting Qualifiers: Vomiting type: unspecified Vomiting Intractability: unspecified Qualified Code( s): R11.2 - Nausea with vomiting, unspecified Condition: Critical Disposition: [facility]
[2017-05-13] MEDS ORDERED: DEXTROSE 5%-WATER 250 ML with NOREPINEPHRINE BITARTRATE 4 MG IV PRN ×4 (07:33→07:54)
--- NOTE | 2017-05-13 07:52 | RADIOLOGY REPORT (SQ) ---
EXAM DESCRIPTION: CT ABD/PELVIS WITH IV ONLY CLINICAL HISTORY: 46 years Male, abd pain COMPARISON: CR, same day. TECHNIQUE: 62 mL Isovue-370 IV contrast. Coronal and sagittal reformat. This exam was performed according to our departmental dose-optimization program, which includes automated exposure control, adjustment of the mA and/or kV according to patient size and/or use of iterative reconstruction technique. FINDINGS: G-tube bulb is in the subcutaneous soft tissues of the left paramedial anterior abdominal wall tonguing at the stomach is best seen on sagittal views. No significant free fluid or free air identified within the abdomen or pelvis. Moderate dilation of jejunal small bowel with air-fluid levels in diameter measuring 2.5 cm and 3.1 cm. Gastric wall thickening/mass at the posterior aspect of the gastroesophageal junction proximal stomach persists. Two lesions of the left lateral hepatic lobe including a new indeterminate 3.6 cm complex left hepatic mass and a second, stable 1.9 cm likely hepatic cyst. Mild nonspecific striated enhancement of the inferior pole of the right kidney. Inferior chest, spleen, adrenals, pancreas, gallbladder, renal system, vasculature, pelvic organs, and musculoskeleton appear otherwise unremarkable. IMPRESSION: 1. G-tube displacement in the anterior abdominal wall. 2. New 3.6 cm left hepatic lesion compared with prior CT/PET, 03/30/2017 may indicate worsening malignancy/metastatic disease in this patient with known history of gastric cancer. 3. Moderate jejunal ileus pattern. Critical results reporting: The results of the examination have been personally discussed with the referring health care provider, BRITTA LOPEZ, immediately following interpretation of the examination on 05/13/2017 6:43 AM [employer].
[2017-05-13] MEDS ORDERED: NORMAL SALINE 250 ML IV PRN ×2 (08:03)
[2017-05-13] MEDS ORDERED: NOREPINEPHRINE BITARTRATE INJ/PF 4 MG/4 ML SDV IV ONE (08:17)
--- NOTE | 2017-05-13 09:27 | EKG REPORT ---
SEVERITY:- OTHERWISE NORMAL ECG - SINUS TACHYCARDIA : Confirmed by: Pamela Crystal 13-May-2017 09:26:58
[2017-05-13] MEDS ORDERED: FENTANYL CITRATE INJ/PF 100 MCG/2 ML AMPUL IV ONE ×2 (09:32→11:29)
[2017-05-13 12:03] VITALS: BP 85/55
--- NOTE | 2017-05-13 18:01 | PDOC CONSULTATION ---
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 He has had some redness around it for a couple of days now and then the tube was noted to have extruded early this morning. Past Medical History Cardiac Medical History: Denies: Atrial Fibrillation, Congestive Heart Failure, Myocardial Infarction , Hyperlipidema, Hypertension Pulmonary Medical History: Denies: Asthma, Bronchitis, Chronic Obstructive Pulmonary Disease (COPD), Pneumonia, Tuberculosis Neurological Medical History: Denies: Migraine, Seizures Endocrine Medical History: Denies: Diabetes Mellitus Type 1, Diabetes Mellitus Type 2 Renal/ Medical History: Denies: End Stage Renal Disease GI Medical History: Denies: Gastroesophageal Reflux Disease, Hiatal Hernia Musculoskeltal Medical History: Denies: Arthritis Psychiatric Medical History: Reports: Depression Denies: Attention Deficit Hyperactivity Disorder, Bipolar Disorder Hematology: Reports: Anemia Denies: Sickle Cell Disease Past Surgical History Past Surgical History: Reports: Other - Port-A-Cath, G-tube, abdominal biopsy Denies: Appendectomy, Cardiac Catheterization, Cholecystectomy, Orthopedic Surgery, Tonsillectomy, Vascular Surgery Social History Smoking Status: Former Smoker Drugs: None Family History Family History: Reviewed & Not Pertinent Parental Family History Reviewed: No Children Family History Reviewed: Unknown Sibling(s) Family History Reviewed.: Unknown Medication/Allergy Home Medications: Hydroxyzine Pamoate [Vistaril 50 mg Capsule] 50 mg PO TID PRN #20 capsule Oxycodone HCl/Acetaminophen [Percocet 5-325 mg Tablet] 1 tab PO ASDIR PRN #20 tablet 03/25/17 Allergies/Adverse Reactions: No Known Allergies Allergy (Unverified 03/25/17 21:30) Review of Systems Constitutional: PRESENT: weakness, weight loss Eyes: ABSENT: visual disturbances Ears: ABSENT: hearing changes Cardiovascular: ABSENT: chest pain, dyspnea on exertion, edema, orthropnea, palpitations Respiratory: ABSENT: cough, hemoptysis Gastrointestinal: PRESENT: abdominal pain, constipation Musculoskeletal: PRESENT: back pain Physical Exam Vital Signs: Temp Pulse Resp BP Pulse Ox 99.0 F 118 H 20 85/55 L 100 05/13/17 11:47 05/13/17 11:47 05/13/17 11:47 05/13/17 11:47 05/13/17 11:47 Intake & Output 05/12/17 05/13/17 05/14/17 06:59 06:59 06:59 Intake Total 315 Balance 315 Weight 62 kg General appearance: PRESENT: mild distress, thin Head exam: PRESENT: atraumatic, normocephalic Eye exam: PRESENT: conjunctiva pale Ear exam: PRESENT: normal external ear exam Neck exam: PRESENT: lymphadenopathy. ABSENT: carotid bruit, JVD, thyromegaly Respiratory exam: PRESENT: clear to auscultation geraldo. ABSENT: rales, rhonchi, wheezes Cardiovascular exam: PRESENT: RRR, +S1, +S2 GI/Abdominal exam: PRESENT: soft, other - The PEG tube bumper was noted to be oin the subcutaneous tissue just beneath the skin; there is erythema around the tube site to a 1cm halo. no active drainage. Abdomen is flat, soft, no rebound or guarding. Rectal exam: PRESENT: deferred Neurological exam: PRESENT: alert, awake, oriented to person, oriented to place , oriented to time, oriented to situation, CN II-XII grossly intact, motor sensory deficit Psychiatric exam: PRESENT: anxious Results Laboratory Results: 05/13/17 06:00 05/13/17 06:00 05/13/17 05/13/17 05/13/17 06:00 06:00 06:00 WBC 4.5 RBC 2.18 L Hgb 6.1 L Hct 18.7 L MCV 86 MCH 27.8 MCHC 32.6 RDW 15.6 H Plt Count 523 H Seg Neutrophils % Not Reportable Lymphocytes % Not Reportable Monocytes % Not Reportable Eosinophils % Not Reportable Basophils % Not Reportable Absolute Neutrophils Not Reportable Absolute Lymphocytes Not Reportable Absolute Monocytes Not Reportable Absolute Eosinophils Not Reportable Absolute Basophils Not Reportable VBG pH VBG pCO2 VBG HCO3 VBG Base Excess Sodium 132.4 L Potassium 4.3 Chloride 99 Carbon Dioxide 22 Anion Gap 11 BUN 16 Creatinine 0.95 Est GFR ( Amer) > 60 Est GFR (Non-Af Amer) > 60 Glucose 98 Lactic Acid 7.6 H Calcium 8.3 L Magnesium Total Bilirubin 0.3 AST 36 ALT 31 Alkaline Phosphatase 94 Total Protein 4.7 L Albumin 2.2 L Lipase Blood Type Antibody Screen 05/13/17 05/13/17 05/13/17 06:00 06:00 08:35 WBC RBC Hgb Hct MCV MCH MCHC RDW Plt Count Seg Neutrophils % Lymphocytes % Monocytes % Eosinophils % Basophils % Absolute Neutrophils Absolute Lymphocytes Absolute Monocytes Absolute Eosinophils Absolute Basophils VBG pH 7.43 H VBG pCO2 31.8 L VBG HCO3 20.8 VBG Base Excess -2.6 Sodium Potassium Chloride Carbon Dioxide Anion Gap BUN Creatinine Est GFR ( Amer) Est GFR (Non-Af Amer) Glucose Lactic Acid Calcium Magnesium 1.8 Total Bilirubin AST ALT Alkaline Phosphatase Total Protein Albumin Lipase 19.0 L Blood Type O POSITIVE Antibody Screen NEGATIVE 05/13/17 11:25 WBC RBC Hgb Hct MCV MCH MCHC RDW Plt Count Seg Neutrophils % Lymphocytes % Monocytes % Eosinophils % Basophils % Absolute Neutrophils Absolute Lymphocytes Absolute Monocytes Absolute Eosinophils Absolute Basophils VBG pH VBG pCO2 VBG HCO3 VBG Base Excess Sodium Potassium Chloride Carbon Dioxide Anion Gap BUN Creatinine Est GFR ( Amer) Est GFR (Non-Af Amer) Glucose Lactic Acid 7.0 H Calcium Magnesium Total Bilirubin AST ALT Alkaline Phosphatase Total Protein Albumin Lipase Blood Type Antibody Screen Impressions: Chest X-Ray 05/13/17 06:00 IMPRESSION: Small left sided atelectasis-scar. Abdomen/Pelvis CT 05/13/17 06:30 IMPRESSION: 1. G-tube displacement in the anterior abdominal wall. 2. New 3.6 cm left hepatic lesion compared with prior CT/PET, 03/30/2017 may indicate worsening malignancy/metastatic disease in this patient with known history of gastric cancer. 3. Moderate jejunal ileus pattern. Critical results reporting: The results of the examination have been personally discussed with the referring health care provider, BRITTA LOPEZ, immediately following interpretation of the examination on 05/13/2017 6:43 AM [employer]. Assessment & Plan - Diagnosis (1) PEG tube malfunction Is this a current diagnosis for this admission?: Yes (2) Carcinoma of gastroesophageal junction Is this a current diagnosis for this admission?: Yes (3) Abdominal pain Qualifiers: Abdominal location: unspecified location Qualified Code(s): R10.9 - Unspecified abdominal pain Is this a current diagnosis for this admission?: Yes - Plan Summary Plan Summary: I had tried to deflate the tube initially, not being sure if this was a balloon tube or not but it wouldn't deflate so I concluded it was probably a bumper tube. I was planning to remove the tube from the subcutaneous tissue in exchange for another tube but to be sure about the tube type I spoke with the primary surgeon in [facility] Dr Jara (of Thoracic surgery). He requested that the patient be transferred to him so he could do the same endoscopically -the patient also had an appointment to see him today anyway. The patient therefore will be transferred to [facility] - I spoke with the parents (who were there with him) and the ER physician about my conversations.
== END 2017-05-13 12:25 | disposition short-term general hospital (02) ==
LOC: ER 05:54
DX: A41.9 Sepsis, unspecified organism (principal); K56.7 Ileus, unspecified; K59.00 Constipation, unspecified; D64.9 Anemia, unspecified; K94.23 Gastrostomy malfunction; Y83.3 Surgical operation with formation of external stoma as the cause of abnormal reaction of the patient, or of later complication, without mention of misadventure at the time of the procedure; Y73.8 Miscellaneous gastroenterology and urology devices associated with adverse incidents, not elsewhere classified; R50.9 Fever, unspecified; R10.817 Generalized abdominal tenderness; C16.9 Malignant neoplasm of stomach, unspecified; R11.2 Nausea with vomiting, unspecified; Z87.891 Personal history of nicotine dependence
CPT/HCPCS: 93005; 36591; 99291; 99292; 96361; 96375; 96365; 86900; 86901; 36415; 87040; 36430; 86850; 82962; 83690; 83735; 85025; 85610; 87077; 80053; 86920; 82803; 83605; 71045; 74177; 93010; P9016; J3010; J3490; J7060; J7030; J2543

== ENCOUNTER 2017-05-21 20:19 | Emergency (ER) | payer OTHER ==
[2017-05-21] MEDS ORDERED: PIPERACILLIN/TAZOBACTAM 4.5 GM VIAL IV ONE (20:55)
[2017-05-21] MEDS ORDERED: VANCOMYCIN HCL INJ 1000 MG VIAL IV ONE (20:55)
[2017-05-21] MEDS ORDERED: NORMAL SALINE 1000 ML 1,000 ML IV ONE (20:55)
--- NOTE | 2017-05-21 20:57 | ER Document Report ---
ED Medical Screen (RME) - General Chief Complaint: Fever, Chemo pt Stated Complaint: FEVER Time Seen by Provider: 05/21/17 20:55 Notes: Patient has stage IV stomach cancer. He received chemo today. He has been weak dizzy and febrile. TRAVEL OUTSIDE OF THE [place] IN LAST 30 DAYS: No - Related Data Allergies/Adverse Reactions: No Known Allergies Allergy (Unverified 03/25/17 21:30) Past Medical History - Past Medical History Cardiac Medical History: Denies: Hx Atrial Fibrillation, Hx Congestive Heart Failure, Hx Heart Attack , Hx Hypercholesterolemia, Hx Hypertension Pulmonary Medical History: Denies: Hx Asthma, Hx Bronchitis, Hx COPD, Hx Pneumonia, Hx Tuberculosis Neurological Medical History: Denies: Hx Migraine, Hx Seizures Endocrine Medical History: Denies: Hx Diabetes Mellitus Type 1, Hx Diabetes Mellitus Type 2 Renal/ Medical History: Denies: Hx End Stage Renal Disease, Hx Kidney Stones, Hx Peritoneal Dialysis GI Medical History: Denies: Hx Gastroesophageal Reflux Disease, Hx Hiatal Hernia , Hx Ulcer Musculoskeltal Medical History: Denies Hx Arthritis Psychiatric Medical History: Reports: Hx Anxiety, Hx Depression Denies: Hx Attention Deficit Hyperactivity Disorder, Hx Bipolar Disorder, Hx Schizophrenia Past Surgical History: Reports: Other - Port-A-Cath, G-tube, abdominal biopsy. Denies: Hx Abdominal Surgery, Hx Appendectomy, Hx Bowel Surgery, Hx Cardiac Catheterization, Hx Cardiac Surgery, Hx Cholecystectomy, Hx Genitourinary Surgery, Hx Kidney (Renal Surgery), Hx Neurologic Surgery, Hx Nose Surgery, Hx Open Heart Surgery, Hx Oral Surgery, Hx Orthopedic Surgery, Hx Pancreatic Surgery, Hx Pituitary Surgery, Hx Rectal Surgery, Hx Testicular Surgery, Hx Thyroid Surgery, Hx Tonsillectomy, Hx Urinary Tract Surgery, Hx Vascular Surgery - Immunizations Hx Diphtheria, Pertussis, Tetanus Vaccination: Yes History of Influenza Vaccine for 12/2016 - 05/2017 Season: No Physical Exam - Vital signs Vitals: Temp Pulse Resp BP Pulse Ox 98.4 F 146 H 20 67/46 L 96 05/21/17 20:26 05/21/17 20:26 05/21/17 20:26 05/21/17 20:26 05/21/17 20:26 Course - Vital Signs Vital signs: Temp Pulse Resp BP Pulse Ox 98.4 F 146 H 20 67/46 L 96 05/21/17 20:26 05/21/17 20:26 05/21/17 20:26 05/21/17 20:26 05/21/17 20:26
[2017-05-21 21:31] LABS: HEMATOCRIT 34.8 % (37.9-51.0); HEMOGLOBIN 11.4 g/dL (13.5-17.0); MEAN CORPUSCULAR HEMOGLOBIN 26.7 pg (27.0-33.4); MEAN CORPUSCULAR HGB CONC 32.7 g/dL (32.0-36.0); PLATELET COUNT 378 10^3/uL (150-450); RED BLOOD COUNT 4.26 10^6/uL (4.35-5.55); WHITE BLOOD COUNT 20.4 10^3/uL (4.0-10.5)
[2017-05-21 21:36] LABS: MEAN CORPUSCULAR VOLUME 82 fl (80-97)
[2017-05-21 21:43] LABS: ALANINE AMINOTRANSFERASE 88 U/L (21-72); ALKALINE PHOSPHATASE 227 U/L (38-126); ANION GAP 9 (5-19); ASPARTATE AMINO TRANSFERASE 127 U/L (17-59); BILIRUBIN,DIRECT 0.4 mg/dL (0.0-0.4); BILIRUBIN,TOTAL 0.4 mg/dL (0.2-1.3); BLOOD UREA NITROGEN 18 mg/dL (7-20); CALCIUM 8.7 mg/dL (8.4-10.2); CARBON DIOXIDE 24 mmol/L (22-30); CHLORIDE 99 mmol/L (98-107); GLUCOSE 95 mg/dL (75-110); POTASSIUM 3.8 mmol/L (3.6-5.0); SODIUM 132.1 mmol/L (137-145); TOTAL PROTEIN 6.8 g/dL (6.3-8.2)
[2017-05-21 21:50] LABS: VENOUS BLOOD BASE EXCESS 1.5 mmol/L; VENOUS BLOOD PCO2 46.1 mmHg (35-63); VENOUS BLOOD PH 7.39 (7.30-7.42)
[2017-05-21 21:55] LABS: ABSOLUTE LYMPHOCYTES# (MANUAL) 0.8 10^3/uL (0.5-4.7); ABSOLUTE MONOCYTES # (MANUAL) 0.6 10^3/uL (0.1-1.4); BAND NEUTROPHILS % (MANUAL) 6 % (3-5); BASOPHILS % (MANUAL) 0 % (0-2); EOSINOPHILS % (MANUAL) 0 % (0-6); LYMPHOCYTES % (MANUAL) 4 % (13-45); MONOCYTES % (MANUAL) 3 % (3-13); SEGMENTED NEUTROPHILS % (MAN) 87 % (42-78); TOTAL CELLS COUNTED 100
[2017-05-21] MEDS ORDERED: LEVOFLOXACIN 750 MG/D5W RTU 750 MG/150 ML RTUPB IV ONE (22:00)
[2017-05-21 22:02] LABS: ANISOCYTOSIS 2+; HYPOCHROMASIA SLIGHT; POIKILOCYTOSIS 1+; TOXIC GRANULATION SLIGHT
[2017-05-21 22:03] LABS: PLATELET COMMENT ADEQUATE
--- NOTE | 2017-05-21 22:23 | RADIOLOGY REPORT (SQ) ---
EXAM DESCRIPTION: CHEST SINGLE VIEW COMPLETED DATE/TIME: 05/21/2017 9:45 pm REASON FOR STUDY: fever COMPARISON: 05/13/2017 EXAM PARAMETERS: NUMBER OF VIEWS: One view. TECHNIQUE: Single frontal radiographic view of the chest acquired. RADIATION DOSE: NA LIMITATIONS: None. FINDINGS: LUNGS AND PLEURA: No acute opacities, masses or pneumothorax. No pleural effusion. MEDIASTINUM AND HILAR STRUCTURES: Stable. HEART AND VASCULAR STRUCTURES: Heart normal in size. Normal vasculature. BONES: No acute findings. HARDWARE: Left chest port. OTHER: No other significant finding. IMPRESSION: NO ACUTE RADIOGRAPHIC FINDING IN THE CHEST. TECHNICAL DOCUMENTATION: JOB ID: [id number] 2010 [employer]- All Rights Reserved
--- NOTE | 2017-05-21 22:57 | ER Document Report ---
ED General - General Mode of Arrival: Wheelchair Information source: Patient TRAVEL OUTSIDE OF THE [place] IN LAST 30 DAYS: No <ONI SRINIVASAN - Last Filed: 05/22/17 00:16> <HERIBERTOSARAH Rothman - Last Filed: 05/22/17 03:49> - General Chief Complaint: Fever, Chemo pt Stated Complaint: FEVER Time Seen by Provider: 05/21/17 20:55 Notes: Patient is a 46 year old male with stage 4 colon cancer presents to the emergency department accompanied by parents complaining of fevers and vomiting. Father states the patient recently had a chemo pump for 2 days which was removed today and the patients symptoms were onset shortly after. Mother states the patient fevers were waxing and waning between 100-104 degrees with 3 episodes of vomiting. Patient also complains of chills and back pain. Patient denies sore throat, cough, congestion, or burning urination. Father states the patient had an infection with his J tube last week and was discharged from [facility] 4 days ago. At bedside patient states that he has some abdominal pain but it is not any different from his usual abdominal pain. (ONI SRINIVASAN) - Related Data Allergies/Adverse Reactions: No Known Allergies Allergy (Unverified 03/25/17 21:30) Past Medical History - General Information source: Patient - Social History Smoking Status: Former Smoker Family History: Reviewed & Not Pertinent Patient has suicidal ideation: No Patient has homicidal ideation: No Psychiatric Medical History: Reports: Hx Anxiety, Hx Depression Past Surgical History: Reports: Other - Port-A-Cath, G-tube, abdominal biopsy - Immunizations Hx Diphtheria, Pertussis, Tetanus Vaccination: Yes <ONI SRINIVASAN - Last Filed: 05/22/17 00:16> Review of Systems - Review of Systems Constitutional: See HPI, Chills, Fever EENT: No symptoms reported Cardiovascular: No symptoms reported Respiratory: No symptoms reported Gastrointestinal: See HPI, Nausea, Vomiting Genitourinary: No symptoms reported Male Genitourinary: No symptoms reported Musculoskeletal: No symptoms reported Skin: No symptoms reported Hematologic/Lymphatic: No symptoms reported Neurological/Psychological: No symptoms reported -: Yes All other systems reviewed and negative <ONI SRINIVASAN - Last Filed: 05/22/17 00:16> Physical Exam <ONI SRINIVASAN - Last Filed: 05/22/17 00:16> <SARAH LOUIS - Last Filed: 05/22/17 03:49> - Vital signs Vitals: Temp Pulse Resp BP Pulse Ox 98.4 F 146 H 20 67/46 L 96 05/21/17 20:26 05/21/17 20:26 05/21/17 20:26 05/21/17 20:26 05/21/17 20:26 - Notes Notes: GENERAL: Alert, interacts well. No acute distress. HEAD: Normocephalic, atraumatic. EYES: Pupils equal, round, and reactive to light. Extraocular movements intact. ENT: Oral mucosa moist, tongue midline. NECK: Full range of motion. Supple. Trachea midline. LUNGS: Clear to auscultation bilaterally, no wheezes, rales, or rhonchi. No respiratory distress. HEART: Regular rate and rhythm. No murmurs, gallops, or rubs. ABDOMEN: Soft, tender to LLQ. Non-distended. Bowel sounds present in all 4 quadrants. EXTREMITIES: Moves all 4 extremities spontaneously. NEUROLOGICAL: Alert and oriented x3. Normal speech. PSYCH: Normal affect, normal mood. SKIN: Warm, dry, normal turgor. No rashes or lesions noted. (ONI SRINIVASAN) Course - Laboratory Result Diagrams: 05/21/17 21:00 05/21/17 21:00 - Consults Dr. Stuart Time consulted: 23:43 - Dr. Stuart accepts patient for admission at [facility]. <ONI SRINIVASAN - Last Filed: 05/22/17 00:16> - Laboratory Result Diagrams: 05/21/17 21:00 05/21/17 21:00 <SARAH LOUIS - Last Filed: 05/22/17 03:49> - Vital Signs Vital signs: Temp Pulse Resp BP Pulse Ox 99.4 F 100 19 93/61 L 100 05/22/17 01:15 05/22/17 00:10 05/22/17 01:02 05/22/17 01:02 05/22/17 01:01 - Laboratory Laboratory results interpreted by me: 05/21/17 05/21/17 05/21/17 21:00 21:00 21:00 WBC 20.4 H RBC 4.26 L Hgb 11.4 L Hct 34.8 L MCH 26.7 L RDW 20.0 H Seg Neuts % (Manual) 87 H Band Neutrophils % 6 H Lymphocytes % (Manual) 4 L Abs Neuts (Manual) 19.0 H Sodium 132.1 L Lactic Acid 2.2 H AST 127 H ALT 88 H Alkaline Phosphatase 227 H Albumin 3.0 L Urine Protein Urine Urobilinogen 05/22/17 00:10 WBC RBC Hgb Hct MCH RDW Seg Neuts % (Manual) Band Neutrophils % Lymphocytes % (Manual) Abs Neuts (Manual) Sodium Lactic Acid AST ALT Alkaline Phosphatase Albumin Urine Protein 100 H Urine Urobilinogen 2.0 H Discharge <ONI SRINIVASAN - Last Filed: 05/22/17 00:16> <SARAH LOUIS - Last Filed: 05/22/17 03:49> - Discharge Clinical Impression: Sepsis Qualifiers: Sepsis type: sepsis due to unspecified organism Qualified Code(s): A41.9 - Sepsis, unspecified organism Leukocytosis Qualifiers: Leukocytosis type: unspecified Qualified Code(s): D72.829 - Elevated white blood cell count, unspecified Condition: Stable Disposition: [facility] Referrals: NADIA PRADO PA [Primary Care Provider] - Follow up as needed Scribe Attestation: 05/22/17 03:48 I personally performed the services described documentation, reviewed and edited the documentation which was dictated to describe my presence, and it accurately records my words and actions. (SARAH LOUIS) Scribe Documentation - Scribe Written by Feliciaibe:: Cristiano Castro, 05/21/2017 23:00 acting as scribe for :: Heriberto <ONI SRINIVASAN - Last Filed: 05/22/17 00:16>
[2017-05-21] MEDS ORDERED: NORMAL SALINE 1000 ML 1,000 ML IV PRN ×2 (23:57)
[2017-05-22] MEDS ORDERED: ACETAMINOPHEN SOLN 325 MG/10.15 ML UDCUP PO ONE (00:18)
[2017-05-22 00:35] LABS: APPEARANCE,URINE CLOUDY; BILIRUBIN,URINE NEGATIVE (NEGATIVE); COLOR,URINE YELLOW; GLUCOSE, URINE NEGATIVE (NEGATIVE); KETONES,URINE NEGATIVE (NEGATIVE); LEUKOCYTE ESTERASE,URINE NEGATIVE (NEGATIVE); NITRITE,URINE NEGATIVE (NEGATIVE); PROTEIN,URINE 100 mg/dL (NEGATIVE); URINE SPECIFIC GRAVITY 1.016
[2017-05-22] MEDS ORDERED: ACETAMINOPHEN 100 ML IV ONE ×2 (00:46→02:00)
[2017-05-22 01:18] VITALS: BP 93/61
--- NOTE | 2017-05-22 08:01 | EKG REPORT ---
SEVERITY:- BORDERLINE ECG - SINUS TACHYCARDIA LEFT AXIS DEVIATION BORDERLINE T WAVE ABNORMALITIES : Confirmed by: Jay Wang MD 22-May-2017 08:00:32
== END 2017-05-22 01:21 | disposition short-term general hospital (02) ==
LOC: ER 20:19
DX: A41.9 Sepsis, unspecified organism (principal); R11.2 Nausea with vomiting, unspecified; C18.9 Malignant neoplasm of colon, unspecified; M54.9 Dorsalgia, unspecified; Z79.899 Other long term (current) drug therapy; Z98.890 Other specified postprocedural states; Z87.891 Personal history of nicotine dependence
CPT/HCPCS: 93005; 99285; 96365; 96367; 96368; 36415; 87040; 87086; 85025; 80053; 81001; 82803; 83605; 71045; 93010; J7030 ×2; J3370; J1956; J2543; J0131

== ENCOUNTER 2017-05-27 08:40 | Outpatient (CLI) | payer OTHER ==
[2017-05-27 09:01] VITALS: BP 109/81
[2017-05-27] MEDS ORDERED: NORMAL SALINE 1000 ML 1,000 ML IV PRN (09:06)
== END 2017-05-27 10:22 | disposition home or self-care (01) ==
LOC: II 08:40 → 5TH 08:53 → II 10:22
PROVIDERS: ATTEND Internal Medicine
PROC: 3E0437Z Introduction of Electrolytic and Water Balance Substance into Central Vein, Percutaneous Approach (ICD-10-PCS; principal; 2017-05-27)
DX: D86.0 Sarcoidosis of lung (principal)
CPT/HCPCS: 96360; 96365; 96374

== ENCOUNTER 2017-06-05 07:38 | Outpatient (CLI) | payer OTHER ==
[~2017-06-05 07:38] MED LIST changes: -ACETAMINOPHEN 325 MG TABLET PO PRN; -DIPHENHYDRAMINE HCL 25 MG CAPSULE PO PRN; -FUROSEMIDE INJ/PF 20 MG/2 ML SDV IV PRN; +NORMAL SALINE 1000 ML 1,000 ML IV PRN
[2017-06-05 08:17] VITALS: BP 124/72
== END 2017-06-05 09:41 | disposition home or self-care (01) ==
LOC: II 07:38 → 5TH 08:07 → II 09:41
PROVIDERS: ATTEND Internal Medicine
PROC: 3E0437Z Introduction of Electrolytic and Water Balance Substance into Central Vein, Percutaneous Approach (ICD-10-PCS; principal; 2017-06-05)
DX: E86.0 Dehydration (principal); C16.0 Malignant neoplasm of cardia
CPT/HCPCS: 96360; 96374

== ENCOUNTER 2017-06-06 10:54 | Outpatient (CLI) | payer OTHER ==
[2017-06-06] MEDS ORDERED: NORMAL SALINE 1000 ML 1,000 ML IV PRN (11:25)
[2017-06-06 11:26] VITALS: BP 123/85
== END 2017-06-06 12:25 | disposition home or self-care (01) ==
LOC: II 10:54 → 5TH 10:58 → II 12:25
PROVIDERS: ATTEND Internal Medicine
PROC: 3E0437Z Introduction of Electrolytic and Water Balance Substance into Central Vein, Percutaneous Approach (ICD-10-PCS; principal; 2017-06-06)
DX: E86.0 Dehydration (principal); C16.0 Malignant neoplasm of cardia
CPT/HCPCS: 96360; 96374

== ENCOUNTER → 2017-06-10 | Outpatient (CLI) | payer OTHER ==
--- NOTE | 2017-06-10 14:04 | RADIOLOGY REPORT (SQ) ---
EXAM DESCRIPTION: CT CHEST WITH; CT ABD/PELVIS WITH IV ONLY COMPLETED DATE/TIME: 06/10/2017 10:36 am REASON FOR STUDY: C160.0 MALIGNANT NEOPLASM OF CARDIA C16.0 MALIGNANT NEOPLASM OF CARDIA COMPARISON: PET-CT 03/30/2017 CT abdomen pelvis 05/13/2017 CONTRAST TYPE AND DOSE: contrast/concentration: Isovue 370.00 mg/ml; Total Contrast Delivered: 59.0 ml; Total Saline Delivered: 65.0 ml RENAL FUNCTION: Creatinine 0.5 TECHNIQUE: CT scan of the chest performed using helical scanning technique with dynamic intravenous contrast injection. Images reviewed with lung, soft tissue and bone windows. Reconstructed coronal a nd sagittal MPR images reviewed. All images stored on PACS. CT scan of the abdomen and pelvis performed with intravenous and without oral contrastusing helical s elba technique with dynamic intravenous contrast injection. Images reviewed with lung, soft tissu e and bone windows. Reconstructed coronal and sagittal MPR images reviewed. Delayed images for eval uation of the urinary system also acquired and evaluated. All images stored on PACS. All CT scanners at this facility use dose modulation, iterative reconstruction, and/or weight based d osing when appropriate to reduce radiation dose to as low as reasonably achievable (ALARA). [facility]: Dose Right [facility]: CareDose [facility]: Dose Right [facility]: Teradose 4D [facility]: [employer] RADIATION DOSE: CT Rad equipment meets quality standard of care and radiation dose reduction techniq ues were employed. CTDIvol: 4.4 - 4.5 mGy. DLP: 662 mGy-cm. . LIMITATIONS: None. FINDINGS: CHEST: LUNGS AND PLEURA: There is minimal airspace disease in the left posterior costophrenic sulcus on axia l image 86 likely atelectasis or scarring. No nodules worrisome for metastatic disease. No pleural effusion. No pneumothorax. HILAR AND MEDIASTINAL STRUCTURES: No hilar or mediastinal adenopathy. Abnormal E thick walled distal esophagus extending into the gastric cardia, slightly less prominent than on prior PET-CT 03/30/[address] abdomen pelvis 05/13/2017. Please see the CT abdomen pelvis for further detail HEART AND VASCULAR STRUCTURES: No aneurysm or dissection. No central pulmonary emboli. No pericardi al effusion. HARDWARE: Left-sided permanent central line tip superior vena cava. THYROID AND OTHER SOFT TISSUES: No masses. No adenopathy. BONES: No significant finding. OTHER: No other significant finding. ABDOMEN AND PELVIS: There is circumferential wall thickening along the distal 3rd of the esophagus with lumpy gastric wal l thickening along the gastric cardia. At the gastric cardia, bulky soft tissue measures 6.4 x 2.6 c m in diameter (was 7.5 x 7 cm diameter on 03/30/2017 PET-CT). LIVER: Just ventral to the GE junction, and ill-defined hypodensity is present in the posterior left lobe liver, measuring 3.5 x 3.1 cm in size. This measured 3.5 x 3 cm on 05/13/2017, and is new compar ed to PET-CT 03/30/2017. Remainder the liver is otherwise unremarkable aside from a 2 cm stable cyst in the anterior left lobe liver near the falciform ligament SPLEEN: Normal size. No focal lesions. PANCREAS: No masses. No significant calcifications. No adjacent inflammation or peripancreatic fluid collections. Pancreatic duct not dilated. GALLBLADDER: No identified stones by CT criteria. No inflammatory changes to suggest cholecystitis. ADRENAL GLANDS: No significant masses or asymmetry. RIGHT KIDNEY AND URETER: No solid masses. No significant calcification. No hydronephrosis or hydroure ter. LEFT KIDNEY AND URETER: No solid masses. No significant calcification. No hydronephrosis or hydrouret er. AORTA AND VESSELS: No aneurysm. No dissection. Renal arteries, SMA, celiac without stenosis. RETROPERITONEUM: There is retroperitoneal adenopathy as follows: Celiac/portacaval space 2.2 x 1.2 cm lymph node axial image 22 (was 9 mm diameter 03/30/2017). 2.5 x 2.2 cm lymph node to the left of the SMA on axial image 23 (was 1.5 cm diameter on 03/30/2017). Conglomerate mass of lymph nodes left para-aortic region axial image 31, 3.9 x 2.8 cm in size. BOWEL AND PERITONEAL CAVITY: No masses or inflammatory changes. No free fluid or peritoneal masses. There is a gastrostomy tube with the tip in the antrum of the stomach. APPENDIX: Normal. ABDOMINAL WALL: No masses. No hernias. PELVIS: No mass or free fluid. Normal bladder. BONES: No significant or acute findings. OTHER: No other significant finding. IMPRESSION: Persistent mass along the distal 3rd of the esophagus and gastric cardia, less prominent than on PET-CT 03/30/2017 Increase in upper abdominal adenopathy compared to previous exams. Gastrostomy tube, left permanent central line in good positioning. NORMAL CT OF THE ABDOMEN AND PELVIS WITH ORAL AND INTRAVENOUS CONTRAST. TECHNICAL DOCUMENTATION: JOB ID: [id number] Quality ID # 436: Final reports with documentation of one or more dose reduction techniques (e.g., Au tomated exposure control, adjustment of the mA and/or kV according to patient size, use of iterative reconstruction technique) 2010 [employer]- All Rights Reserved Reading location - IP/workstation name: [email or web address]
== END ==
LOC: RAD 10:10
PROVIDERS: ATTEND Internal Medicine
DX: C16.0 Malignant neoplasm of cardia (principal)
CPT/HCPCS: 71260; 74177

== ENCOUNTER 2017-06-19 09:45 | Outpatient (CLI) | payer OTHER ==
[2017-06-19 10:31] VITALS: BP 100/50
== END 2017-06-19 11:10 | disposition home or self-care (01) ==
LOC: II 09:45 → 5TH 09:46 → II 11:10
PROVIDERS: ATTEND Internal Medicine
PROC: 3E0437Z Introduction of Electrolytic and Water Balance Substance into Central Vein, Percutaneous Approach (ICD-10-PCS; principal; 2017-06-19)
DX: E86.0 Dehydration (principal); C16.0 Malignant neoplasm of cardia
CPT/HCPCS: 96360; 96374

== ENCOUNTER 2017-06-20 09:49 | Outpatient (CLI) | payer OTHER | END 2017-06-20 11:37 | disposition home or self-care (01) | LOC: II 09:49 → 5TH 09:51 → II 11:37 | PROVIDERS: ATTEND Internal Medicine | PROC: 3E0437Z Introduction of Electrolytic and Water Balance Substance into Central Vein, Percutaneous Approach (ICD-10-PCS; principal; 2017-06-20) | DX: E86.0 Dehydration (principal); C16.0 Malignant neoplasm of cardia | CPT/HCPCS: 96360 ==

== ENCOUNTER 2017-07-17 09:51 | Outpatient (CLI) | payer OTHER ==
[2017-07-17 10:43] VITALS: BP 112/83
== END 2017-07-17 12:00 | disposition home or self-care (01) ==
LOC: II 09:51 → 5TH 09:58 → II 12:00
PROVIDERS: ATTEND Internal Medicine
PROC: 3E0437Z Introduction of Electrolytic and Water Balance Substance into Central Vein, Percutaneous Approach (ICD-10-PCS; principal; 2017-07-17)
DX: E86.0 Dehydration (principal); C16.0 Malignant neoplasm of cardia
CPT/HCPCS: 96360; 96361; 96374

== ENCOUNTER 2017-07-18 09:50 | Outpatient (CLI) | payer OTHER ==
[2017-07-18 10:16] VITALS: BP 127/87
== END 2017-07-18 11:03 | disposition home or self-care (01) ==
LOC: II 09:50 → 5TH 10:01 → II 11:03
PROVIDERS: ATTEND Internal Medicine
PROC: 3E0437Z Introduction of Electrolytic and Water Balance Substance into Central Vein, Percutaneous Approach (ICD-10-PCS; principal; 2017-07-18)
DX: E86.0 Dehydration (principal); C16.0 Malignant neoplasm of cardia
CPT/HCPCS: 96360

== ENCOUNTER → 2017-08-08 | Outpatient (CLI) | payer OTHER ==
--- NOTE | 2017-08-08 09:00 | RADIOLOGY REPORT (SQ) ---
EXAM DESCRIPTION: CT CHEST WITH COMPLETED DATE/TIME: 08/08/2017 8:40 am REASON FOR STUDY: GASTRIC CA (C16.0) C16.0 MALIGNANT NEOPLASM OF CARDIA COMPARISON: None. TECHNIQUE: CT scan of the chest performed using helical scanning technique with dynamic intravenous contrast injection. Images reviewed with lung, soft tissue and bone windows. Reconstructed coronal and sagittal MPR images reviewed. All images stored on PACS. All CT scanners at this facility use dose modulation, iterative reconstruction, and/or weight based d osing when appropriate to reduce radiation dose to as low as reasonably achievable (ALARA). [facility]: Dose Right [facility]: CareDose [facility]: Dose Right [facility]: Teradose 4D [facility]: Smart [employer] CONTRAST TYPE AND DOSE: See separate report of the same date. RENAL FUNCTION: See separate report of the same date. RADIATION DOSE: . LIMITATIONS: None. FINDINGS: LUNGS AND PLEURA: 3 mm ground-glass nodule in the left upper lobe on image 68. Similar si ze pleural-based ground-glass nodules in the left lower lobe. No effusions. HILAR AND MEDIASTINAL STRUCTURES: No identified masses or abnormal nodes. HEART AND VASCULAR STRUCTURES: No aneurysm or dissection. No central pulmonary emboli. No pericardi al effusion. HARDWARE: None in the chest. UPPER ABDOMEN: See separate report of the CT of the abdomen. THYROID AND OTHER SOFT TISSUES: No masses. No adenopathy. BONES: No significant finding. OTHER: Left-sided port with tip in the SVC. IMPRESSION: Stable ground-glass nodules and/or atelectasis left lung. TECHNICAL DOCUMENTATION: JOB ID: [id number] Quality ID # 436: Final reports with documentation of one or more dose reduction techniques (e.g., Au tomated exposure control, adjustment of the mA and/or kV according to patient size, use of iterative reconstruction technique) 2010 [employer]- All Rights Reserved Reading location - IP/workstation name: Unknown
--- NOTE | 2017-08-08 09:09 | RADIOLOGY REPORT (SQ) ---
EXAM DESCRIPTION: CT ABD/PELVIS WITH IV ONLY COMPLETED DATE/TIME: 08/08/2017 8:40 am REASON FOR STUDY: GASTRIC CA (C16.0) C16.0 MALIGNANT NEOPLASM OF CARDIA COMPARISON: None. TECHNIQUE: CT scan of the abdomen and pelvis performed using helical scanning technique with dynamic intravenous contrast injection. No oral contrast. Images reviewed with lung, soft tissue, and bone windows. Reconstructed coronal and sagittal MPR images reviewed. Delayed images for evaluation of the urinary system also acquired. All images stored on PACS. All CT scanners at this facility use dose modulation, iterative reconstruction, and/or weight based d osing when appropriate to reduce radiation dose to as low as reasonably achievable (ALARA). [facility]: Dose Right [facility]: CareDose [facility]: Dose Right [facility]: Teradose 4D [facility]: rumr: turn off the lights CONTRAST TYPE AND DOSE: 100 cc Isovue 300- low osmolar. RENAL FUNCTION: GFR > 60. RADIATION DOSE: . LIMITATIONS: None. FINDINGS: LOWER CHEST: Thickening of the distal esophagus but no measurable mass is identified. LIVER: Lesion in the left lobe has decreased in size from 3.1 x 3.5 to 1.2 x 1.2 cm. Benign cyst brit ng the falciform ligament. No new lesions. SPLEEN: Normal size. No focal lesions. PANCREAS: No masses. No significant calcifications. No adjacent inflammation or peripancreatic fluid collections. Pancreatic duct not dilated. GALLBLADDER: No identified stones by CT criteria. No inflammatory changes to suggest cholecystitis. ADRENAL GLANDS: No significant masses or asymmetry. RIGHT KIDNEY AND URETER: No solid masses. No significant calcifications. No hydronephrosis or hyd roureter. LEFT KIDNEY AND URETER: No solid masses. No significant calcifications. No hydronephrosis or hydr oureter. AORTA AND VESSELS: No aneurysm. No dissection. Renal arteries, SMA, celiac without stenosis. RETROPERITONEUM: Slight increase in size of 1 of the larger conglomerate of nodes to left of midline, previously 2.8 x 3.8, now 3.5 x 3.9 cm. BOWEL AND PERITONEAL CAVITY: Thickened rugal folds in the gastric cardia but no measurable mass. Sta ble celiac and SMA axis adenopathy. No ascites. APPENDIX: Normal. PELVIS: No mass. No free fluid. Normal bladder. ABDOMINAL WALL: Gastrostomy. BONES: No acute findings. OTHER: No other significant finding. IMPRESSION: 1. Favorable response to therapy distal esophageal/gastric cardia mass. 2. Favorable response to therapy liver metastatic lesion. 3. Slight progression of retroperitoneal adenopathy. TECHNICAL DOCUMENTATION: JOB ID: [id number] Quality ID # 436: Final reports with documentation of one or more dose reduction techniques (e.g., Au tomated exposure control, adjustment of the mA and/or kV according to patient size, use of iterative reconstruction technique) 2010 [employer]- All Rights Reserved Reading location - IP/workstation name: Unknown
== END ==
LOC: RAD 07:09
PROVIDERS: ATTEND Internal Medicine
DX: C16.0 Malignant neoplasm of cardia (principal); C78.7 Secondary malignant neoplasm of liver and intrahepatic bile duct; R59.9 Enlarged lymph nodes, unspecified
CPT/HCPCS: 71260; 74177

== ENCOUNTER → 2017-09-18 | Outpatient (CLI) | payer OTHER ==
--- NOTE | 2017-09-18 17:05 | RADIOLOGY REPORT (SQ) ---
EXAM DESCRIPTION: CT ABD/PELVIS WITH IV ONLY; CT CHEST WITH COMPLETED DATE/TIME: 09/18/2017 3:10 pm REASON FOR STUDY: MALIGNANT NEOPLASM OF CARDIA (C16.0) C16.0 MALIGNANT NEOPLASM OF CARDIA COMPARISON: PET-CT 03/30/2017 CT abdomen pelvis 05/13/2017 CT chest abdomen pelvis 06/10/2017, 08/08/2017 CONTRAST TYPE AND DOSE: contrast/concentration: Isovue 370.00 mg/ml; Total Contrast Delivered: 64.0 ml; Total Saline Delivered: 65.0 ml RENAL FUNCTION: Creatinine 0.7 TECHNIQUE: CT scan of the chest performed using helical scanning technique with dynamic intravenous contrast injection. Images reviewed with lung, soft tissue and bone windows. Reconstructed coronal a nd sagittal MPR images reviewed. All images stored on PACS. CT scan of the abdomen and pelvis performed with intravenous and without oral contrastusing helical s elba technique with dynamic intravenous contrast injection. Images reviewed with lung, soft tissu e and bone windows. Reconstructed coronal and sagittal MPR images reviewed. Delayed images for eval uation of the urinary system also acquired and evaluated. All images stored on PACS. All CT scanners at this facility use dose modulation, iterative reconstruction, and/or weight based d osing when appropriate to reduce radiation dose to as low as reasonably achievable (ALARA). [facility]: Dose Right [facility]: CareDose [facility]: Dose Right [facility]: Teradose 4D [facility]: [employer] RADIATION DOSE: CT Rad equipment meets quality standard of care and radiation dose reduction techniq ues were employed. CTDIvol: 4.4 - 4.5 mGy. DLP: 906 mGy-cm. . LIMITATIONS: None. FINDINGS: CHEST: LUNGS AND PLEURA: An 8 mm nodule is present at the lingular apex (was less than 5 mm in size 8). An 8 mm nodule is present in the left lateral costophrenic sulcus, 2.5 x 1.2 cm left posterior costop hrenic sulcus pleural based nodule is present. These are new compared to previous study 08/08/2017. No acute infiltrates. No pleural effusion. No pneumothorax. HILAR AND MEDIASTINAL STRUCTURES: Interval development of mediastinal and hilar lymphadenopathy as fo llows: 4 x 3 cm left supraclavicular lymph node image 7 2 x 2 cm right hilar lymph node image 20 a 2 x 1.7 cm left hilar lymph node image 33 2.4 x 2 cm precarinal lymph node image 26 2.4 x 1.6 cm prevascular lymph node image 24 1.9 x 1.1 cm sub- carinal lymph node image 28 HEART AND VASCULAR STRUCTURES: No aneurysm or dissection. No central pulmonary emboli. No pericardi al effusion. HARDWARE: None. THYROID AND OTHER SOFT TISSUES: No masses. No adenopathy. BONES: No significant finding. OTHER: No other significant finding. ABDOMEN AND PELVIS: LIVER: Normal size. No masses. No dilated ducts. SPLEEN: Normal size. No focal lesions. PANCREAS: No masses. No significant calcifications. No adjacent inflammation or peripancreatic fluid collections. Pancreatic duct not dilated. GALLBLADDER: No identified stones by CT criteria. No inflammatory changes to suggest cholecystitis. ADRENAL GLANDS: No significant masses or asymmetry. RIGHT KIDNEY AND URETER: No solid masses. No significant calcification. No hydronephrosis or hydroure ter. LEFT KIDNEY AND URETER: No solid masses. No significant calcification. No hydronephrosis or hydrouret er. AORTA AND VESSELS: No aneurysm. No dissection. Renal arteries, SMA, celiac without stenosis. RETROPERITONEUM: There is upper abdominal retroperitoneal adenopathy, with a rind of adenopathy surro unding the aorta and vena cava at the celiac/ SMA level measuring 7 x 5 cm in greatest diameter on im age 24. BOWEL AND PERITONEAL CAVITY: Persistent abnormal distal esophageal wall, GE junction, and stomach fun dus wall thickening from tumor. G tube the tip in the stomach. Small bowel and colon are unremarkab le. No ascites. No free intraperitoneal air. APPENDIX: Normal. ABDOMINAL WALL: No masses. No hernias. PELVIS: No mass or free fluid. Normal bladder. BONES: There is lytic destruction of the right lamina and spinous process of L4 OTHER: No other significant finding. IMPRESSION: Progression of disease with adenopathy in the lorna, mediastinum, supraclavicular, and up per abdominal areas New lytic destructive lesion in the right L4 lamina and spinous process Persistent mass in the distal esophagus, GE junction, and stomach fundus NORMAL CT OF THE ABDOMEN AND PELVIS WITH ORAL AND INTRAVENOUS CONTRAST. TECHNICAL DOCUMENTATION: JOB ID: [id number] Quality ID # 436: Final reports with documentation of one or more dose reduction techniques (e.g., Au tomated exposure control, adjustment of the mA and/or kV according to patient size, use of iterative reconstruction technique) 2010 [employer]- All Rights Reserved Reading location - IP/workstation name: [email or web address]
== END ==
LOC: RAD 14:23
PROVIDERS: ATTEND Physician Assistant Medical
DX: C16.0 Malignant neoplasm of cardia (principal)
CPT/HCPCS: 71260; 74177

== ENCOUNTER 2017-11-24 16:16 | Observation (INO) | payer OTHER ==
[2017-11-24] MEDS ORDERED: FENTANYL CITRATE INJ/PF 100 MCG/2 ML AMPUL IV ONE (16:50)
[2017-11-24] MEDS ORDERED: RINGERS SOLUTION,LACTATED 1,000 ML IV ONE (16:50)
--- NOTE | 2017-11-24 16:52 | ER Document Report ---
ED Medical Screen (RME) - General Chief Complaint: Vomiting Stated Complaint: WEAKNESS Time Seen by Provider: 11/24/17 16:41 Notes: 47-year-old male patient followed by oncology for gastric carcinoma with metastasis. On chemotherapy. Here to the emergency department with tachycardia , weakness, dehydration. Patient followed by Dr Rolon patient complaining of abdominal pain as well. I have greeted and performed a rapid initial assessment of this patient. A comprehensive ED assessment and evaluation of the patient, analysis of test results and completion of the medical decision making process will be conducted by additional ED providers. TRAVEL OUTSIDE OF THE [place] IN LAST 30 DAYS: No - Related Data Allergies/Adverse Reactions: No Known Allergies Allergy (Unverified 03/25/17 21:30) Past Medical History - Past Medical History Cardiac Medical History: Denies: Hx Atrial Fibrillation, Hx Congestive Heart Failure, Hx Heart Attack , Hx Hypercholesterolemia, Hx Hypertension Pulmonary Medical History: Denies: Hx Asthma, Hx Bronchitis, Hx COPD, Hx Pneumonia, Hx Tuberculosis Neurological Medical History: Denies: Hx Migraine, Hx Seizures Endocrine Medical History: Denies: Hx Diabetes Mellitus Type 1, Hx Diabetes Mellitus Type 2 Renal/ Medical History: Denies: Hx End Stage Renal Disease, Hx Kidney Stones, Hx Peritoneal Dialysis GI Medical History: Denies: Hx Gastroesophageal Reflux Disease, Hx Hiatal Hernia , Hx Ulcer Musculoskeltal Medical History: Denies Hx Arthritis Psychiatric Medical History: Reports: Hx Anxiety, Hx Depression Denies: Hx Attention Deficit Hyperactivity Disorder, Hx Bipolar Disorder, Hx Schizophrenia Past Surgical History: Reports: Other - Port-A-Cath, G-tube, abdominal biopsy. Denies: Hx Abdominal Surgery, Hx Appendectomy, Hx Bowel Surgery, Hx Cardiac Catheterization, Hx Cardiac Surgery, Hx Cholecystectomy, Hx Genitourinary Surgery, Hx Kidney (Renal Surgery), Hx Neurologic Surgery, Hx Nose Surgery, Hx Open Heart Surgery, Hx Oral Surgery, Hx Orthopedic Surgery, Hx Pancreatic Surgery, Hx Pituitary Surgery, Hx Rectal Surgery, Hx Testicular Surgery, Hx Thyroid Surgery, Hx Tonsillectomy, Hx Urinary Tract Surgery, Hx Vascular Surgery - Immunizations Hx Diphtheria, Pertussis, Tetanus Vaccination: Yes History of Influenza Vaccine for 12/2016 - 05/2017 Season: No Review of Systems - Review of Systems Notes: View of systems positive for the following: Weakness, dehydration, tachycardia, malignancy or abdominal pain Physical Exam - Vital signs Vitals: Temp Pulse Resp BP Pulse Ox 99.2 F 111 H 16 83/54 L 97 11/24/17 16:21 11/24/17 16:21 11/24/17 16:21 11/24/17 16:21 11/24/17 16:21 Interpretation: Hypotensive, Tachycardic - General Notes: Ill-appearing, frail, cachectic individual. - Cardiovascular Rhythm: Tachycardia Heart sounds: Normal auscultation Murmur: No Course - Vital Signs Vital signs: Temp Pulse Resp BP Pulse Ox 99.2 F 111 H 16 83/54 L 97 11/24/17 16:21 11/24/17 16:21 11/24/17 16:21 11/24/17 16:21 11/24/17 16:21 Doctor's Discharge - Discharge Referrals: WINSTON ORNELAS MD [Primary Care Provider] - Follow up as needed
[2017-11-24 17:28] LABS: ABSOLUTE BASOPHILS # (AUTO) 0.1 10^3/uL (0.0-0.2); ABSOLUTE EOSINOPHILS # (AUTO) 0.1 10^3/uL (0.0-0.6); ABSOLUTE LYMPHOCYTES (AUTO) 0.8 10^3/uL (0.5-4.7); ABSOLUTE MONOCYTES (AUTO) 0.7 10^3/uL (0.1-1.4); ABSOLUTE NEUT (AUTO) 9.6 10^3/uL (1.7-8.2); BASOPHILS % (AUTO) 0.9 % (0-2); EOSINOPHILS % (AUTO) 0.9 % (0-6); LYMPHOCYTES % (AUTO) 6.9 % (13-45); MEAN CORPUSCULAR HEMOGLOBIN 26.7 pg (27.0-33.4); MEAN CORPUSCULAR HGB CONC 31.8 g/dL (32.0-36.0); MEAN CORPUSCULAR VOLUME 84 fl (80-97); MONOCYTES % (AUTO) 6.3 % (3-13); PLATELET COUNT 476 10^3/uL (150-450); RED BLOOD COUNT 2.17 10^6/uL (4.35-5.55); RED CELL DISTRIBUTION WIDTH 17.6 % (11.5-14.0); TOTAL CELLS COUNTED % (AUTO) 100 %; WHITE BLOOD COUNT 11.3 10^3/uL (4.0-10.5)
[2017-11-24 17:30] LABS: HEMOGLOBIN 5.8 g/dL (13.5-17.0)
[2017-11-24 17:31] LABS: HEMATOCRIT 18.2 % (37.9-51.0)
[2017-11-24] MEDS ORDERED: NORMAL SALINE 250 ML IV PRN (17:32)
[2017-11-24 17:54] LABS: ALANINE AMINOTRANSFERASE 15 U/L (21-72); ALBUMIN 2.3 g/dL (3.5-5.0); ALKALINE PHOSPHATASE 106 U/L (38-126); ASPARTATE AMINO TRANSFERASE 24 U/L (17-59); BLOOD UREA NITROGEN 19 mg/dL (7-20); CALCIUM 8.1 mg/dL (8.4-10.2); GLUCOSE 97 mg/dL (75-110); LIPASE 14.1 U/L (23-300); POTASSIUM 4.3 mmol/L (3.6-5.0); TOTAL PROTEIN 5.3 g/dL (6.3-8.2)
--- NOTE | 2017-11-24 17:54 | RADIOLOGY REPORT (SQ) ---
EXAM DESCRIPTION: ACUTE ABDOMEN SERIES COMPLETED DATE/TIME: 11/24/2017 5:32 pm REASON FOR STUDY: abd pain COMPARISON: 09/18/2017 NUMBER OF VIEWS: Three views. TECHNIQUE: Frontal chest, supine abdomen and upright/decubitus abdomen radiographic images acquired. LIMITATIONS: None. FINDINGS: CHEST: New bilateral pleural effusions and basilar airspace opacities. FREE AIR: None. No abnormal gas collections. BOWEL GAS PATTERN: Nonobstructive pattern. No dilated loops or air fluid levels. Moderate stool patti en. CALCIFICATIONS: No suspicious calcifications. HARDWARE: G-tube. Left chest port. SOFT TISSUES: No gross mass or suggestion of organomegaly. BONES: No acute fracture. No worrisome bone lesions. OTHER: No other significant finding. IMPRESSION: NO RADIOGRAPHIC EVIDENCE FOR ACUTE ABDOMINAL DISEASE. New bilateral pleural effusions and basilar airspace opacities. TECHNICAL DOCUMENTATION: JOB ID: [id number] [place]-72 2010 [employer]- All Rights Reserved Reading location - IP/workstation name: [email or web address]
[2017-11-24 17:57] LABS: BILIRUBIN,TOTAL < 0.1 mg/dL (0.2-1.3)
[2017-11-24 18:03] LABS: ANION GAP 2 (5-19); CARBON DIOXIDE 31 mmol/L (22-30); CHLORIDE 100 mmol/L (98-107); SODIUM 133.2 mmol/L (137-145)
[2017-11-24] MEDS ORDERED: HYDROMORPHONE HCL INJ/PF 2 MG/ML AMPULE IV PRN (18:48)
--- NOTE | 2017-11-24 18:49 | ER Document Report ---
ED General - General Chief Complaint: Vomiting Stated Complaint: WEAKNESS Time Seen by Provider: 11/24/17 16:41 Notes: Patient is a 47-year-old male with a past medical history of gastroesophageal cancer with known metastases who presents with general weakness and anemia from his oncologist office. The patient has required recurrent transfusions due to anemia in association with his cancer. He was requested to come the emergency department due to his critically low hemoglobin. Patient states that he has felt chronically very tired "for a long time now", but states overall he would like to go home. The patient is currently on immunotherapy but no chemotherapy. He denies any acute change in his symptoms today. He does describe a global body pain that is aching, throbbing pain. States that his home oxycodone does improve this pain. Nothing worsens the pain. He has not had any fever, vomiting chest pain, or shortness of breath. TRAVEL OUTSIDE OF THE [place] IN LAST 30 DAYS: No - Related Data Allergies/Adverse Reactions: No Known Allergies Allergy (Unverified 03/25/17 21:30) Past Medical History - General Information source: Patient - Social History Smoking Status: Never Smoker Frequency of alcohol use: None Drug Abuse: None Lives with: Family Family History: Reviewed & Not Pertinent Patient has suicidal ideation: No Patient has homicidal ideation: No - Past Medical History Cardiac Medical History: Denies: Hx Atrial Fibrillation, Hx Congestive Heart Failure, Hx Heart Attack , Hx Hypercholesterolemia, Hx Hypertension Pulmonary Medical History: Denies: Hx Asthma, Hx Bronchitis, Hx COPD, Hx Pneumonia, Hx Tuberculosis Neurological Medical History: Denies: Hx Migraine, Hx Seizures Endocrine Medical History: Denies: Hx Diabetes Mellitus Type 1, Hx Diabetes Mellitus Type 2 Renal/ Medical History: Denies: Hx End Stage Renal Disease, Hx Kidney Stones, Hx Peritoneal Dialysis GI Medical History: Denies: Hx Gastroesophageal Reflux Disease, Hx Hiatal Hernia , Hx Ulcer Musculoskeletal Medical History: Denies Hx Arthritis Psychiatric Medical History: Reports: Hx Anxiety, Hx Depression Denies: Hx Attention Deficit Hyperactivity Disorder, Hx Bipolar Disorder, Hx Schizophrenia Past Surgical History: Reports: Other - Port-A-Cath, G-tube, abdominal biopsy. Denies: Hx Abdominal Surgery, Hx Appendectomy, Hx Bowel Surgery, Hx Cardiac Catheterization, Hx Cardiac Surgery, Hx Cholecystectomy, Hx Genitourinary Surgery, Hx Kidney (Renal Surgery), Hx Neurologic Surgery, Hx Nose Surgery, Hx Open Heart Surgery, Hx Oral Surgery, Hx Orthopedic Surgery, Hx Pancreatic Surgery, Hx Pituitary Surgery, Hx Rectal Surgery, Hx Testicular Surgery, Hx Thyroid Surgery, Hx Tonsillectomy, Hx Urinary Tract Surgery, Hx Vascular Surgery - Immunizations Hx Diphtheria, Pertussis, Tetanus Vaccination: Yes Review of Systems - Review of Systems Notes: Constitutional: Negative for fever. Positive for fatigue HENT: Negative for sore throat. Eyes: Negative for visual changes. Cardiovascular: Negative for chest pain. Respiratory: Negative for shortness of breath. Gastrointestinal: Negative for abdominal pain, vomiting or diarrhea. Genitourinary: Negative for dysuria. Musculoskeletal: Positive for body pain Skin: Negative for rash. Neurological: Negative for headaches, weakness or numbness. 10 point ROS negative except as marked above and in HPI. Physical Exam - Vital signs Vitals: Temp Pulse Resp BP Pulse Ox 99.2 F 111 H 16 83/54 L 97 11/24/17 16:21 11/24/17 16:21 11/24/17 16:21 11/24/17 16:21 11/24/17 16:21 Interpretation: Hypotensive, Tachycardic Notes: PHYSICAL EXAMINATION: GENERAL: Appears chronically ill but in no acute distress HEAD: Atraumatic, normocephalic. EYES: Pupils equal round and reactive to light, extraocular movements intact, sclera anicteric, conjunctiva are normal. ENT: nares patent, oropharynx clear without exudates. Mildly dry mucous membranes. NECK: Normal range of motion, supple without lymphadenopathy LUNGS: Breath sounds clear to auscultation bilaterally and equal. No wheezes rales or rhonchi. HEART: Regular tachycardia without murmurs ABDOMEN: Soft, nontender, normoactive bowel sounds. No guarding, no rebound. No masses appreciated. EXTREMITIES: Normal range of motion, no pitting or edema. No cyanosis. NEUROLOGICAL: No focal neurological deficits. Moves all extremities spontaneously and on command. PSYCH: Normal mood, normal affect. SKIN: Warm, Dry, diffuse pallor Course - Re-evaluation Re-evalutation: 11/24/17 18:56 Patient presents with anemia, general fatigue, probable rapid progression of his gastroesophageal cancer. He is hypotensive at baseline. 2 units packed red blood cells have been ordered. I have had a conversation with his oncologist Dr. Patel regarding the patient's presentation and progression of illness. He has requested 2 units be completed, that we perform staging CT imaging and then plan for admission to the hospital. He plans discussed the patient transition to hospice care in the morning. I have discussed with the patient that we will keep him comfortable while he is here in the emergency department and have ordered 2 mg of hydromorphone every 2 hours as needed. I have explained to him that this is not adequate he should let us know as we will titrate his comfort. 11/24/17 19:58 Patient symptoms are currently controlled. I discussed this case with Dr. Cao the admitting physician. Care plan discussed at length. She has accepted the patient. - Vital Signs Vital signs: Temp Pulse Resp BP Pulse Ox 99.4 F 111 H 14 82/49 L 93 11/25/17 02:04 11/25/17 02:04 11/25/17 02:04 11/25/17 02:04 11/25/17 02:04 - Laboratory Result Diagrams: 11/24/17 17:13 11/24/17 17:13 Laboratory results interpreted by me: 11/24/17 11/24/17 11/24/17 17:13 17:13 18:16 WBC 11.3 H RBC 2.17 L Hgb 5.8 L Hct 18.2 L MCH 26.7 L MCHC 31.8 L RDW 17.6 H Plt Count 476 H Seg Neutrophils % 85.0 H Lymphocytes % 6.9 L Absolute Neutrophils 9.6 H Sodium 133.2 L Carbon Dioxide 31 H Anion Gap 2 L Creatinine 0.51 L Calcium 8.1 L Total Bilirubin < 0.1 L ALT 15 L Total Protein 5.3 L Albumin 2.3 L Lipase 14.1 L Crossmatch See Detail - Diagnostic Test Radiology reviewed: Reports reviewed Discharge - Discharge Clinical Impression: Carcinoma of gastroesophageal junction, Chronic anemia Hypotension Qualifiers: Hypotension type: unspecified hypotension type Qualified Code(s): I95.9 - Hypotension, unspecified Condition: Fair Disposition: ADMITTED OBSERVATION Admitting Provider: Hospitalist Unit Admitted: Telemetry
[2017-11-24] MEDS ORDERED: ONDANSETRON HCL INJ/PF 4 MG/2 ML SDV IV ONE (19:23)
--- NOTE | 2017-11-24 19:28 | EKG REPORT ---
SEVERITY:- OTHERWISE NORMAL ECG - SINUS RHYTHM BORDERLINE LEFT AXIS DEVIATION : Confirmed by: Jay Wang MD 24-Nov-2017 19:27:42
[2017-11-24] MEDS ORDERED: HYDROMORPHONE HCL INJ/PF 2 MG/ML AMPULE IV ONE (20:43)
--- NOTE | 2017-11-24 21:09 | RADIOLOGY REPORT (SQ) ---
EXAM DESCRIPTION: CT SOFT TISSUE NECK WITH; CT ABD/PELVIS WITH IV ONLY; CT CHEST WITH COMPLETED DATE/TIME: 11/24/2017 8:19 pm REASON FOR STUDY: staging CONTRAST TYPE AND DOSE: contrast/concentration: Isovue 350.00 mg/ml; Total Contrast Delivered: 80.0 ml; Total Saline Delivered: 55.0 ml RENAL FUNCTION: GFR > 60. COMPARISON: 09/18/2017 TECHNIQUE: CT scan of the neck and chest performed using helical scanning technique with dynamic int ravenous contrast injection. Images reviewed with lung, soft tissue and bone windows. Reconstructed coronal and sagittal MPR images reviewed. All images stored on PACS. All CT scanners at this facility use dose modulation, iterative reconstruction, and/or weight based d osing when appropriate to reduce radiation dose to as low as reasonably achievable (ALARA). [facility]: Dose Right [facility]: CareDose [facility]: Dose Right [facility]: Teradose 4D [facility]: [employer] RADIATION DOSE: CT Rad equipment meets quality standard of care and radiation dose reduction techniq ues were employed. CTDIvol: 7.2 - 9.4 mGy. DLP: 1226 mGy-cm.. LIMITATIONS: None. FINDINGS: Bulky lymphadenopathy in the lower neck, left greater than right, new adenopathy is noted compared with the prior study. Dominant 4.3 cm left lower cervical complex trena mass has slightly d iminished in size compared with the prior exam. New large bilateral pleural effusions and compressive atelectasis throughout the majority of both low er lobes. Small nodular -patchy opacities are present in both upper lobes and along the major fissur es. No pneumothorax. Increased mediastinal adenopathy. New left chest port in expected position. Thickening in the lower esophagus -GE junction. OTHER: No other acute finding. IMPRESSION: Progression of disease.New large bilateral pleural effusions and compressive atelectasis throughout the majority of both lower lobes. COMPARISON: None. RADIATION DOSE: CT Rad equipment meets quality standard of care and radiation dose reduction techniq ues were employed. CTDIvol: 7.2 - 9.4 mGy. DLP: 1226 mGy-cm.mGy. TECHNIQUE: CT scan of the abdomen and pelvis performed with intravenous and oral contrast using john francy scanning technique with dynamic intravenous contrast injection. Images reviewed with lung, soft tissue and bone windows. Reconstructed coronal and sagittal MPR images reviewed. Delayed images for evaluation of the urinary system also acquired and evaluated. All images stored on PACS. All CT scanners at this facility use dose modulation, iterative reconstruction, and/or weight based d osing when appropriate to reduce radiation dose to as low as reasonably achievable (ALARA). [facility]: Dose Right [facility]: SureCare [facility]: Dose Right [facility]: Teradose 4D [facility]: [employer] FINDINGS: Multiple masses are present in the upper retroperitoneum which show increased size. Incre ased Diffuse nodular wall thickening of the stomach particularly in the GE junction -cardiac region. New 3 cm hypodense lesion in the left lobe of the liver adjacent to the wall of the stomach. Multip le upper abdominal varices, increase compared with the prior exam. New small amount of free fluid in the deep pelvis. No other acute findings. IMPRESSION: Progression of disease.Increased Diffuse nodular wall thickening of the stomach particul alejandro in the GE junction -cardiac region. New 3 cm hypodense lesion in the left lobe of the liver bony cent to the wall of the stomach. TECHNICAL DOCUMENTATION: JOB ID: [id number] [place]-72 Quality ID # [id number]: Final reports with documentation of one or more dose reduction techniques (e.g., Au tomated exposure control, adjustment of the mA and/or kV according to patient size, use of iterative reconstruction technique) 2010 [employer]- All Rights Reserved Reading location - IP/workstation name: [email or web address]
--- NOTE | 2017-11-24 21:09 | RADIOLOGY REPORT (SQ) ---
EXAM DESCRIPTION: CT SOFT TISSUE NECK WITH; CT ABD/PELVIS WITH IV ONLY; CT CHEST WITH COMPLETED DATE/TIME: 11/24/2017 8:19 pm REASON FOR STUDY: staging CONTRAST TYPE AND DOSE: contrast/concentration: Isovue 350.00 mg/ml; Total Contrast Delivered: 80.0 ml; Total Saline Delivered: 55.0 ml RENAL FUNCTION: GFR > 60. COMPARISON: 09/18/2017 TECHNIQUE: CT scan of the neck and chest performed using helical scanning technique with dynamic int ravenous contrast injection. Images reviewed with lung, soft tissue and bone windows. Reconstructed coronal and sagittal MPR images reviewed. All images stored on PACS. All CT scanners at this facility use dose modulation, iterative reconstruction, and/or weight based d osing when appropriate to reduce radiation dose to as low as reasonably achievable (ALARA). [facility]: Dose Right [facility]: CareDose [facility]: Dose Right [facility]: Teradose 4D [facility]: [employer] RADIATION DOSE: CT Rad equipment meets quality standard of care and radiation dose reduction techniq ues were employed. CTDIvol: 7.2 - 9.4 mGy. DLP: 1226 mGy-cm.. LIMITATIONS: None. FINDINGS: Bulky lymphadenopathy in the lower neck, left greater than right, new adenopathy is noted compared with the prior study. Dominant 4.3 cm left lower cervical complex trena mass has slightly d iminished in size compared with the prior exam. New large bilateral pleural effusions and compressive atelectasis throughout the majority of both low er lobes. Small nodular -patchy opacities are present in both upper lobes and along the major fissur es. No pneumothorax. Increased mediastinal adenopathy. New left chest port in expected position. Thickening in the lower esophagus -GE junction. OTHER: No other acute finding. IMPRESSION: Progression of disease.New large bilateral pleural effusions and compressive atelectasis throughout the majority of both lower lobes. COMPARISON: None. RADIATION DOSE: CT Rad equipment meets quality standard of care and radiation dose reduction techniq ues were employed. CTDIvol: 7.2 - 9.4 mGy. DLP: 1226 mGy-cm.mGy. TECHNIQUE: CT scan of the abdomen and pelvis performed with intravenous and oral contrast using john francy scanning technique with dynamic intravenous contrast injection. Images reviewed with lung, soft tissue and bone windows. Reconstructed coronal and sagittal MPR images reviewed. Delayed images for evaluation of the urinary system also acquired and evaluated. All images stored on PACS. All CT scanners at this facility use dose modulation, iterative reconstruction, and/or weight based d osing when appropriate to reduce radiation dose to as low as reasonably achievable (ALARA). [facility]: Dose Right [facility]: SureCare [facility]: Dose Right [facility]: Teradose 4D [facility]: [employer] FINDINGS: Multiple masses are present in the upper retroperitoneum which show increased size. Incre ased Diffuse nodular wall thickening of the stomach particularly in the GE junction -cardiac region. New 3 cm hypodense lesion in the left lobe of the liver adjacent to the wall of the stomach. Multip le upper abdominal varices, increase compared with the prior exam. New small amount of free fluid in the deep pelvis. No other acute findings. IMPRESSION: Progression of disease.Increased Diffuse nodular wall thickening of the stomach particul alejandro in the GE junction -cardiac region. New 3 cm hypodense lesion in the left lobe of the liver bony cent to the wall of the stomach. TECHNICAL DOCUMENTATION: JOB ID: [id number] [place]-72 Quality ID # [id number]: Final reports with documentation of one or more dose reduction techniques (e.g., Au tomated exposure control, adjustment of the mA and/or kV according to patient size, use of iterative reconstruction technique) 2010 [employer]- All Rights Reserved Reading location - IP/workstation name: [email or web address]
--- NOTE | 2017-11-24 21:10 | RADIOLOGY REPORT (SQ) ---
EXAM DESCRIPTION: CT SOFT TISSUE NECK WITH; CT ABD/PELVIS WITH IV ONLY; CT CHEST WITH COMPLETED DATE/TIME: 11/24/2017 8:19 pm REASON FOR STUDY: staging CONTRAST TYPE AND DOSE: contrast/concentration: Isovue 350.00 mg/ml; Total Contrast Delivered: 80.0 ml; Total Saline Delivered: 55.0 ml RENAL FUNCTION: GFR > 60. COMPARISON: 09/18/2017 TECHNIQUE: CT scan of the neck and chest performed using helical scanning technique with dynamic int ravenous contrast injection. Images reviewed with lung, soft tissue and bone windows. Reconstructed coronal and sagittal MPR images reviewed. All images stored on PACS. All CT scanners at this facility use dose modulation, iterative reconstruction, and/or weight based d osing when appropriate to reduce radiation dose to as low as reasonably achievable (ALARA). [facility]: Dose Right [facility]: CareDose [facility]: Dose Right [facility]: Teradose 4D [facility]: [employer] RADIATION DOSE: CT Rad equipment meets quality standard of care and radiation dose reduction techniq ues were employed. CTDIvol: 7.2 - 9.4 mGy. DLP: 1226 mGy-cm.. LIMITATIONS: None. FINDINGS: Bulky lymphadenopathy in the lower neck, left greater than right, new adenopathy is noted compared with the prior study. Dominant 4.3 cm left lower cervical complex trena mass has slightly d iminished in size compared with the prior exam. New large bilateral pleural effusions and compressive atelectasis throughout the majority of both low er lobes. Small nodular -patchy opacities are present in both upper lobes and along the major fissur es. No pneumothorax. Increased mediastinal adenopathy. New left chest port in expected position. Thickening in the lower esophagus -GE junction. OTHER: No other acute finding. IMPRESSION: Progression of disease.New large bilateral pleural effusions and compressive atelectasis throughout the majority of both lower lobes. COMPARISON: None. RADIATION DOSE: CT Rad equipment meets quality standard of care and radiation dose reduction techniq ues were employed. CTDIvol: 7.2 - 9.4 mGy. DLP: 1226 mGy-cm.mGy. TECHNIQUE: CT scan of the abdomen and pelvis performed with intravenous and oral contrast using john francy scanning technique with dynamic intravenous contrast injection. Images reviewed with lung, soft tissue and bone windows. Reconstructed coronal and sagittal MPR images reviewed. Delayed images for evaluation of the urinary system also acquired and evaluated. All images stored on PACS. All CT scanners at this facility use dose modulation, iterative reconstruction, and/or weight based d osing when appropriate to reduce radiation dose to as low as reasonably achievable (ALARA). [facility]: Dose Right [facility]: [facility]Care [facility]: Dose Right [facility]: Teradose 4D [facility]: [employer] FINDINGS: Multiple masses are present in the upper retroperitoneum which show increased size. Incre ased Diffuse nodular wall thickening of the stomach particularly in the GE junction -cardiac region. New 3 cm hypodense lesion in the left lobe of the liver adjacent to the wall of the stomach. Multip le upper abdominal varices, increase compared with the prior exam. New small amount of free fluid in the deep pelvis. No other acute findings. IMPRESSION: Progression of disease.Increased Diffuse nodular wall thickening of the stomach particul alejandro in the GE junction -cardiac region. New 3 cm hypodense lesion in the left lobe of the liver bony cent to the wall of the stomach. TECHNICAL DOCUMENTATION: JOB ID: [id number] [place]-72 Quality ID # [id number]: Final reports with documentation of one or more dose reduction techniques (e.g., Au tomated exposure control, adjustment of the mA and/or kV according to patient size, use of iterative reconstruction technique) 2010 [employer]- All Rights Reserved Reading location - IP/workstation name: [email or web address]
[2017-11-24] MEDS ORDERED: ACETAMINOPHEN 325 MG TABLET PO PRN (21:28)
[2017-11-24] MEDS ORDERED: PROMETHAZINE HCL INJ 25 MG/1 ML VIAL IV PRN (21:28)
[2017-11-24] MEDS ORDERED: IPRATROPIUM/ALBUTEROL 0.5-2.5 MG/3 ML AMPUL NEB PRN (21:28)
[2017-11-24] MEDS ORDERED: TEMAZEPAM 7.5 MG CAPSULE PO PRN (21:28)
[2017-11-24] MEDS ORDERED: NORMAL SALINE 1000 ML 1,000 ML IV PRN (21:39)
--- NOTE | 2017-11-24 22:11 | PDOC H&P ---
History of Present Illness Admission Date/PCP: 11/24/17 20:12 WINSTON ORNELAS MD Patient complains of: Weakness History of Present Illness: SARAH JOHNSON JR is a 47 year old male who unfortunately has history of metastatic gastroesophageal cancer, follows with with his oncologist. Today he had an appointment on the patient was extremely weak, worn out, pale, hypotensive she decided to send him to the emergency department. Hemoglobin 5.8. 2 units of PRBC ordered. ED attending had a conversation with his oncologist Dr. Huffman regarding the patient's presentation on progression of disease. He was supposed to have a CT imaging next week but she requested to have it done today, he had a carmona CT showing progression of the disease. His stepfather who is at the bedside tells me that he was on chemotherapy that has been stopped last September. Oncologist requested admission to have a discussion with family about transition to hospice care in the morning. Past Medical History Cardiac Medical History: Denies: Atrial Fibrillation, Congestive Heart Failure, Myocardial Infarction , Hyperlipidema, Hypertension Pulmonary Medical History: Denies: Asthma, Bronchitis, Chronic Obstructive Pulmonary Disease (COPD), Pneumonia, Tuberculosis Neurological Medical History: Denies: Migraine, Seizures Endocrine Medical History: Denies: Diabetes Mellitus Type 1, Diabetes Mellitus Type 2 Renal/ Medical History: Denies: End Stage Renal Disease Malignancy Medical History: Reports: Other - Metastatic gastroesophageal cancer GI Medical History: Denies: Gastroesophageal Reflux Disease, Hiatal Hernia Musculoskeltal Medical History: Denies: Arthritis Psychiatric Medical History: Reports: Depression Denies: Attention Deficit Hyperactivity Disorder, Bipolar Disorder Hematology: Reports: Anemia Denies: Sickle Cell Disease Past Surgical History Past Surgical History: Reports: Other - Port-A-Cath, G-tube, abdominal biopsy Denies: Appendectomy, Cardiac Catheterization, Cholecystectomy, Orthopedic Surgery, Tonsillectomy, Vascular Surgery Social History Smoking Status: Current Every Day Smoker - 3 cigarettes a day I just 2 drinks socially, no history of illicit drugs. Lives with mother and stepfather. Frequency of Alcohol Use: None Drugs: None Family History Family History: Reviewed & Not Pertinent Family History: Patient is adopted, stepfather knows the sister who does not have any medical illness Parental Family History Reviewed: No Children Family History Reviewed: NA Sibling(s) Family History Reviewed.: NA Medication/Allergy Allergies/Adverse Reactions: No Known Allergies Allergy (Unverified 03/25/17 21:30) Review of Systems Review of Systems: Remarkable for generalized weakness, pain, nausea. Physical Exam Vital Signs: Temp Pulse Resp BP Pulse Ox 100 F 115 H 18 100/57 L 91 L 11/24/17 21:30 11/24/17 21:18 11/24/17 21:30 11/24/17 21:30 11/24/17 21:30 Intake & Output 11/23/17 11/24/17 11/25/17 06:59 06:59 06:59 Intake Total 1000 Balance 1000 Additional comments: General appearance: Deconditioned, cachectic, alert looks sick and weak, very pale, and appears to be in no acute distress Head: Normocephalic Eyes: PEERL, EOMI, vision is grossly intact. Ears: External auditory canal and tympanic membranes clear, hearing grossly intact. Nose: No nasal discharge. Throat: Oral cavity and pharynx dry. Neck: Neck supple, nontender without lymphadenopathy or thyromegaly. Cardiac: Normal S1 and S2. No S3, S4 or murmurs. Rhythm is regular. There is no peripheral edema. Extremities are warm and well perfused. Capillary refill is less than 2 seconds. No carotid bruits. Lungs: Clear to auscultation and percussion without rales, rhonchi, wheezing or diminished breath sounds poor inspiratory effort. Not using accessory muscles. Abdomen: Positive bowel sounds. Soft. Nondistended, nontender. No guarding or rebound. No masses. No hepatosplenomegaly Extremities: No significant deformity or joint abnormality. No edema. Peripheral pulses intact. Neurological: Cranial nerves II through XII grossly intact. Strength and sensation symmetric and intact throughout. Reflexes 2+ throughout. Skin: Skin very pale, normal texture and turgor, warm and dry. Psychiatric: The mental examination revealed the patient was oriented to person , place, and time. Results Laboratory Results: 11/24/17 11/24/17 11/24/17 17:13 17:13 17:13 WBC 11.3 H RBC 2.17 L Hgb 5.8 L Hct 18.2 L MCV 84 MCH 26.7 L MCHC 31.8 L RDW 17.6 H Plt Count 476 H Seg Neutrophils % 85.0 H Lymphocytes % 6.9 L Monocytes % 6.3 Eosinophils % 0.9 Basophils % 0.9 Absolute Neutrophils 9.6 H Absolute Lymphocytes 0.8 Absolute Monocytes 0.7 Absolute Eosinophils 0.1 Absolute Basophils 0.1 Sodium 133.2 L Potassium 4.3 Chloride 100 Carbon Dioxide 31 H Anion Gap 2 L BUN 19 Creatinine 0.51 L Est GFR ( Amer) > 60 Est GFR (Non-Af Amer) > 60 Glucose 97 Lactic Acid 1.6 Calcium 8.1 L Magnesium Total Bilirubin < 0.1 L Direct Bilirubin AST 24 ALT 15 L Alkaline Phosphatase 106 Total Protein 5.3 L Albumin 2.3 L Lipase 14.1 L 11/24/17 17:13 WBC RBC Hgb Hct MCV MCH MCHC RDW Plt Count Seg Neutrophils % Lymphocytes % Monocytes % Eosinophils % Basophils % Absolute Neutrophils Absolute Lymphocytes Absolute Monocytes Absolute Eosinophils Absolute Basophils Sodium Potassium Chloride Carbon Dioxide Anion Gap BUN Creatinine Est GFR ( Amer) Est GFR (Non-Af Amer) Glucose Lactic Acid Calcium Magnesium 2.0 Total Bilirubin Direct Bilirubin AST ALT Alkaline Phosphatase Total Protein Albumin Lipase Impressions: Acute Abdomen Series 11/24/17 16:49 IMPRESSION: NO RADIOGRAPHIC EVIDENCE FOR ACUTE ABDOMINAL DISEASE. New bilateral pleural effusions and basilar airspace opacities. Abdomen/Pelvis CT 11/24/17 18:52 IMPRESSION: Progression of disease.New large bilateral pleural effusions and compressive atelectasis throughout the majority of both lower lobes. IMPRESSION: Progression of disease.Increased Diffuse nodular wall thickening of the stomach particularly in the GE junction -cardiac region. New 3 cm hypodense lesion in the left lobe of the liver adjacent to the wall of the stomach. Chest CT 11/24/17 18:52 IMPRESSION: Progression of disease.New large bilateral pleural effusions and compressive atelectasis throughout the majority of both lower lobes. IMPRESSION: Progression of disease.Increased Diffuse nodular wall thickening of the stomach particularly in the GE junction -cardiac region. New 3 cm hypodense lesion in the left lobe of the liver adjacent to the wall of the stomach. Soft Tissue Neck CT 11/24/17 18:52 IMPRESSION: Progression of disease.New large bilateral pleural effusions and compressive atelectasis throughout the majority of both lower lobes. IMPRESSION: Progression of disease.Increased Diffuse nodular wall thickening of the stomach particularly in the GE junction -cardiac region. New 3 cm hypodense lesion in the left lobe of the liver adjacent to the wall of the stomach. Assessment & Plan - Diagnosis (1) Carcinoma of gastroesophageal junction Is this a current diagnosis for this admission?: Yes Plan: Ultimately this young patient has a metastatic GE carcinoma, follows with Dr. Huffman, talk to him on the family regarding placing him on hospice. IV Dilaudid as needed, IV antiemetics as needed (2) Symptomatic anemia Is this a current diagnosis for this admission?: Yes Plan: Hemoglobin 5.8 and hematocrit 18. 2 units of PRBC ordered. Reassess CBC in the morning. (3) Hypotension Qualifiers: Hypotension type: unspecified hypotension type Qualified Code(s): I95.9 - Hypotension, unspecified Is this a current diagnosis for this admission?: Yes Plan: Patient has kind of chronic hypotension, BP 86/54 with tachycardia, this is possible associated with severe dehydration. Patient has received IV fluids in the ED and we will go ahead and place him on normal saline running at 75 cc overnight. - Time Time Spent: 30 to 50 Minutes
[2017-11-24] MEDS ORDERED: OXYCODONE HCL IR 5 MG TABLET PEG PRN (22:12)
[2017-11-25] MEDS: HYDROMORPHONE HCL INJ/PF 2 MG/ML AMPULE IV PRN ×2 (01:16→05:30)
[2017-11-25 05:22] LABS: ABSOLUTE EOSINOPHILS # (AUTO) 0.2 10^3/uL (0.0-0.6); ABSOLUTE LYMPHOCYTES (AUTO) 0.7 10^3/uL (0.5-4.7); ABSOLUTE MONOCYTES (AUTO) 0.7 10^3/uL (0.1-1.4); ABSOLUTE NEUT (AUTO) 8.6 10^3/uL (1.7-8.2); BASOPHILS % (AUTO) 0.4 % (0-2); EOSINOPHILS % (AUTO) 1.6 % (0-6); HEMATOCRIT 21.2 % (37.9-51.0); MEAN CORPUSCULAR HEMOGLOBIN 28.5 pg (27.0-33.4); MEAN CORPUSCULAR HGB CONC 33.3 g/dL (32.0-36.0); MEAN CORPUSCULAR VOLUME 86 fl (80-97); MONOCYTES % (AUTO) 6.8 % (3-13); PLATELET COUNT 357 10^3/uL (150-450); RED BLOOD COUNT 2.49 10^6/uL (4.35-5.55); RED CELL DISTRIBUTION WIDTH 16.3 % (11.5-14.0); SEGMENTED NEUTROPHILS % (AUTO) 84.2 % (42-78); TOTAL CELLS COUNTED % (AUTO) 100 %; WHITE BLOOD COUNT 10.2 10^3/uL (4.0-10.5)
[2017-11-25 05:26] LABS: HEMOGLOBIN 7.1 g/dL (13.5-17.0)
[2017-11-25 05:30] LABS: ANION GAP 5 (5-19); BLOOD UREA NITROGEN 16 mg/dL (7-20); CALCIUM 8.1 mg/dL (8.4-10.2); CARBON DIOXIDE 27 mmol/L (22-30); CHLORIDE 103 mmol/L (98-107); GLUCOSE 83 mg/dL (75-110); PHOSPHORUS 4.4 mg/dL (2.5-4.5); POTASSIUM 4.3 mmol/L (3.6-5.0); SODIUM 134.7 mmol/L (137-145)
--- NOTE | 2017-11-25 08:55 | PDOC DISCHARGE SUMMARY ---
General - Admit/Disc Date/PCP Admission Date/Primary Care Provider: 11/24/17 20:12 WINSTON ORNELAS MD Discharge Date: 11/25/17 - Discharge Diagnosis (1) Carcinoma of gastroesophageal junction Is this a current diagnosis for this admission?: Yes (2) Hypotension Is this a current diagnosis for this admission?: Yes (3) Symptomatic anemia Is this a current diagnosis for this admission?: Yes - Additional Information Resuscitation Status: Full Code Discharge Diet: As Tolerated Discharge Activity: Activity As Tolerated History of Present Illness History of Present Illness: SARAH JOHNSON JR is a 47 year old male who unfortunately has history of metastatic gastroesophageal cancer, follows with with his oncologist. Today he had an appointment on the patient was extremely weak, worn out, pale, hypotensive she decided to send him to the emergency department. Hemoglobin 5.8. 2 units of PRBC ordered. ED attending had a conversation with his oncologist Dr. Huffman regarding the patient's presentation on progression of disease. He was supposed to have a CT imaging next week but she requested to have it done today, he had a carmona CT showing progression of the disease. His stepfather who is at the bedside tells me that he was on chemotherapy that has been stopped last September. Oncologist requested admission to have a discussion with family about transition to hospice care in the [facility] Course Hospital Course: The patient was admitted for observation. CT scan of neck, chest, abdomen and pelvis shows progression of disease. Patient received 2 units of blood and his hemoglobin improved. He discussed with his oncologist and they decided on hospice care. Patient will be discharged to home with hospice and oncology will take over pain control management. Physical Exam Vital Signs: Temp Pulse Resp BP Pulse Ox 98.6 F 100 18 83/46 L 93 11/25/17 07:58 11/25/17 07:58 11/25/17 07:58 11/25/17 07:58 11/25/17 07:58 Intake & Output 11/24/17 11/25/17 11/26/17 06:59 06:59 06:59 Intake Total 1300 Balance 1300 General appearance: PRESENT: no acute distress, cooperative Head exam: PRESENT: atraumatic Respiratory exam: PRESENT: clear to auscultation geraldo Cardiovascular exam: PRESENT: RRR GI/Abdominal exam: PRESENT: tenderness Extremities exam: ABSENT: pedal edema Neurological exam: PRESENT: alert, altered, awake, oriented to person, oriented to place, oriented to time, oriented to situation Results Laboratory Results: 11/25/17 03:59 11/25/17 03:59 11/25/17 11/25/17 03:59 03:59 WBC 10.2 RBC 2.49 L Hgb 7.1 L Hct 21.2 L MCV 86 MCH 28.5 MCHC 33.3 RDW 16.3 H Plt Count 357 Seg Neutrophils % 84.2 H Lymphocytes % 7.0 L Monocytes % 6.8 Eosinophils % 1.6 Basophils % 0.4 Absolute Neutrophils 8.6 H Absolute Lymphocytes 0.7 Absolute Monocytes 0.7 Absolute Eosinophils 0.2 Absolute Basophils 0.0 Sodium 134.7 L Potassium 4.3 Chloride 103 Carbon Dioxide 27 Anion Gap 5 BUN 16 Creatinine 0.54 Est GFR ( Amer) > 60 Est GFR (Non-Af Amer) > 60 Glucose 83 Calcium 8.1 L Phosphorus 4.4 Magnesium 2.0 Impressions: Acute Abdomen Series 11/24/17 16:49 IMPRESSION: NO RADIOGRAPHIC EVIDENCE FOR ACUTE ABDOMINAL DISEASE. New bilateral pleural effusions and basilar airspace opacities. Abdomen/Pelvis CT 11/24/17 18:52 IMPRESSION: Progression of disease.New large bilateral pleural effusions and compressive atelectasis throughout the majority of both lower lobes. IMPRESSION: Progression of disease.Increased Diffuse nodular wall thickening of the stomach particularly in the GE junction -cardiac region. New 3 cm hypodense lesion in the left lobe of the liver adjacent to the wall of the stomach. Chest CT 11/24/17 18:52 IMPRESSION: Progression of disease.New large bilateral pleural effusions and compressive atelectasis throughout the majority of both lower lobes. IMPRESSION: Progression of disease.Increased Diffuse nodular wall thickening of the stomach particularly in the GE junction -cardiac region. New 3 cm hypodense lesion in the left lobe of the liver adjacent to the wall of the stomach. Soft Tissue Neck CT 11/24/17 18:52 IMPRESSION: Progression of disease.New large bilateral pleural effusions and compressive atelectasis throughout the majority of both lower lobes. IMPRESSION: Progression of disease.Increased Diffuse nodular wall thickening of the stomach particularly in the GE junction -cardiac region. New 3 cm hypodense lesion in the left lobe of the liver adjacent to the wall of the stomach. Qualifiers - * PATIENT BEING DISCHARGED WITH ANY OF THE FOLLOWING DIAGNOSIS: No
[2017-11-25] MEDS ORDERED: HYDROMORPHONE HCL INJ/PF 2 MG/ML AMPULE IV ONE (09:00)
[2017-11-25] MEDS ORDERED: MORPHINE SULFATE 10 MG/ML INJ IV ONE (09:00)
--- NOTE | 2017-11-25 09:02 | PDOC CONSULTATION ---
Consultation Consult Date: 11/25/17 Attending physician:: RYAN VANEGAS Consult reason:: Stage IV gastric cancer, dehydration and pain History of Present Illness Admission Date/PCP: 11/24/17 20:12 WINSTON ORNELAS MD Patient complains of: Dehydration, pain History of Present Illness: SARAH JOHNSON JR is a 47 year old male with known history of stage IV gastric cancer, unfortunately in the last few weeks has been declining considerably. His p.o. intake is decreased his lost weight, he does have left cervical adenopathy that has been increasing. He was on second line therapy with immunotherapy, received his third cycle about 3 weeks ago and was due for imaging in the next couple days for restaging. Unfortunately, however he came in very weak and dehydrated to our office yesterday, we hydrated him but still was very weak. Hemoglobin was down to 5.7. We admitted him for hydration as well as blood transfusion, he was also in a lot of pain and we adjusted his pain medications. Today had a long discussion with patient and family, discussed transitioning to comfort care measures, DNR status, patient and family agreed to comfort care measures and DNR. Past Medical History Cardiac Medical History: Denies: Atrial Fibrillation, Congestive Heart Failure, Myocardial Infarction , Hyperlipidema, Hypertension Pulmonary Medical History: Denies: Asthma, Bronchitis, Chronic Obstructive Pulmonary Disease (COPD), Pneumonia, Tuberculosis Neurological Medical History: Denies: Migraine, Seizures Endocrine Medical History: Denies: Diabetes Mellitus Type 1, Diabetes Mellitus Type 2 Renal/ Medical History: Denies: End Stage Renal Disease Malignancy Medical History: Reports: Other - Metastatic gastroesophageal cancer GI Medical History: Denies: Gastroesophageal Reflux Disease, Hiatal Hernia Musculoskeltal Medical History: Denies: Arthritis Psychiatric Medical History: Reports: Depression Denies: Attention Deficit Hyperactivity Disorder, Bipolar Disorder Hematology: Reports: Anemia Denies: Sickle Cell Disease Past Surgical History Past Surgical History: Reports: Other - Port-A-Cath, G-tube, abdominal biopsy Denies: Appendectomy, Cardiac Catheterization, Cholecystectomy, Orthopedic Surgery, Tonsillectomy, Vascular Surgery Social History Information Source: Patient Lives with: Family Smoking Status: Never Smoker Frequency of Alcohol Use: None Drugs: None - Advance Directive Resuscitation Status: Full Code Family History Family History: Reviewed & Not Pertinent Parental Family History Reviewed: Yes Children Family History Reviewed: Yes Sibling(s) Family History Reviewed.: Yes Medication/Allergy Allergies/Adverse Reactions: No Known Allergies Allergy (Unverified 03/25/17 21:30) Review of Systems Constitutional: PRESENT: anorexia, fatigue, weakness, weight loss Cardiovascular: PRESENT: dyspnea on exertion Gastrointestinal: PRESENT: abdominal pain, dysphagia, nausea, vomiting Musculoskeletal: PRESENT: back pain Neurological: PRESENT: weakness Endocrine: PRESENT: cold intolerance Physical Exam Vital Signs: Temp Pulse Resp BP Pulse Ox 98.6 F 100 18 83/46 L 93 11/25/17 07:58 11/25/17 07:58 11/25/17 07:58 11/25/17 07:58 11/25/17 07:58 Intake & Output 11/24/17 11/25/17 11/26/17 06:59 06:59 06:59 Intake Total 1300 Balance 1300 General appearance: PRESENT: mild distress, thin Mouth exam: PRESENT: dry mucosa Teeth exam: PRESENT: poor dentation Respiratory exam: PRESENT: clear to auscultation geraldo. ABSENT: rales, rhonchi, wheezes Cardiovascular exam: PRESENT: tachycardia GI/Abdominal exam: PRESENT: normal bowel sounds, soft. ABSENT: distended, guarding, mass, organolmegaly, rebound, tenderness Rectal exam: PRESENT: deferred Musculoskeletal exam: PRESENT: ambulatory Neurological exam: PRESENT: alert, awake, oriented to person, oriented to place , oriented to time, oriented to situation, CN II-XII grossly intact. ABSENT: motor sensory deficit Results Laboratory Results: 11/25/17 03:59 11/25/17 03:59 11/25/17 11/25/17 03:59 03:59 WBC 10.2 RBC 2.49 L Hgb 7.1 L Hct 21.2 L MCV 86 MCH 28.5 MCHC 33.3 RDW 16.3 H Plt Count 357 Seg Neutrophils % 84.2 H Lymphocytes % 7.0 L Monocytes % 6.8 Eosinophils % 1.6 Basophils % 0.4 Absolute Neutrophils 8.6 H Absolute Lymphocytes 0.7 Absolute Monocytes 0.7 Absolute Eosinophils 0.2 Absolute Basophils 0.0 Sodium 134.7 L Potassium 4.3 Chloride 103 Carbon Dioxide 27 Anion Gap 5 BUN 16 Creatinine 0.54 Est GFR ( Amer) > 60 Est GFR (Non-Af Amer) > 60 Glucose 83 Calcium 8.1 L Phosphorus 4.4 Magnesium 2.0 Impressions: Acute Abdomen Series 11/24/17 16:49 IMPRESSION: NO RADIOGRAPHIC EVIDENCE FOR ACUTE ABDOMINAL DISEASE. New bilateral pleural effusions and basilar airspace opacities. Abdomen/Pelvis CT 11/24/17 18:52 IMPRESSION: Progression of disease.New large bilateral pleural effusions and compressive atelectasis throughout the majority of both lower lobes. IMPRESSION: Progression of disease.Increased Diffuse nodular wall thickening of the stomach particularly in the GE junction -cardiac region. New 3 cm hypodense lesion in the left lobe of the liver adjacent to the wall of the stomach. Chest CT 11/24/17 18:52 IMPRESSION: Progression of disease.New large bilateral pleural effusions and compressive atelectasis throughout the majority of both lower lobes. IMPRESSION: Progression of disease.Increased Diffuse nodular wall thickening of the stomach particularly in the GE junction -cardiac region. New 3 cm hypodense lesion in the left lobe of the liver adjacent to the wall of the stomach. Soft Tissue Neck CT 11/24/17 18:52 IMPRESSION: Progression of disease.New large bilateral pleural effusions and compressive atelectasis throughout the majority of both lower lobes. IMPRESSION: Progression of disease.Increased Diffuse nodular wall thickening of the stomach particularly in the GE junction -cardiac region. New 3 cm hypodense lesion in the left lobe of the liver adjacent to the wall of the stomach. Status: Image reviewed by me Assessment & Plan - Diagnosis (1) Carcinoma of gastroesophageal junction Is this a current diagnosis for this admission?: Yes Plan: Stage IV gastric cancer, no further treatment possible for him, performance status has worsened. Plan for hospice initiation, today had greater than 70 minute discussion with patient and family, agree to this approach. - Time Anticipated discharge: Home, Hospice Within: within 24 hours
[2017-11-25 09:25] VITALS: BP 82/49
[2017-11-25] MEDS ORDERED: ENOXAPARIN SODIUM INJ 40 MG/0.4 ML DISP.SYRIN SUBCUT SCH (10:00)
== END 2017-11-25 10:36 | disposition hospice, home (50) ==
LOC: ER 16:16 → EH 20:12 → 5 22:53
PROVIDERS: ADMIT Internal Medicine; ATTEND Internal Medicine
PROC: 30233N1 Transfusion of Nonautologous Red Blood Cells into Peripheral Vein, Percutaneous Approach (ICD-10-PCS; principal; 2017-11-24)
DX: C16.0 Malignant neoplasm of cardia (principal); C79.89 Secondary malignant neoplasm of other specified sites; I95.9 Hypotension, unspecified; D64.9 Anemia, unspecified; R00.0 Tachycardia, unspecified; J90 Pleural effusion, not elsewhere classified; J98.11 Atelectasis; E86.0 Dehydration; R06.09 Other forms of dyspnea; R13.10 Dysphagia, unspecified; M54.9 Dorsalgia, unspecified; F17.210 Nicotine dependence, cigarettes, uncomplicated; Z92.21 Personal history of antineoplastic chemotherapy; Z79.899 Other long term (current) drug therapy; Z95.828 Presence of other vascular implants and grafts; Z66 Do not resuscitate
CPT/HCPCS: 93005; 96376; 99285; 96361; 96374; 86900; 86901; 36415 ×2; 36430; 86850; 83690; 83735 ×2; 84100; 85025 ×2; 80048; 80053; 86920; 83605; 74022; 70491; 71260; 74177; 93010; G0378 ×3; P9016; J2270; J1170 ×2; J3490; J2405; J7120